=== PATIENT | male | born 1960 | race Caucasian/White ===

== ENCOUNTER 2023-04-26 15:38 | Emergency (ER) | payer OTHER, SELFPAY ==
[2023-04-26 15:45] VITALS: BP 141/94
[2023-04-26] MEDS: ATIVAN 1 MG PO (16:58)
--- NOTE | 2023-04-26 17:03 | ED.GENMED ---
History of Present Illness
General
Chief Complaint: Anal/Rectal Problem
Source: patient
Exam Limitations: none
Time Seen by Provider: 04/26/23 16:29
Nursing documentation reviewed up to this point in time: agreed with
Travel History
Have you had any contact with someone who has COVID-19?: No
Do you have any symptoms of coronavirus? Fever > 100 degrees, chills, cough, shortness of breath, sore throat, loss of taste or smell, muscle aches, or headache?: No
History of Present Illness
History of Present Illness:
62-year-old male with history of ulcerative colitis, IBS, constipation, anxiety presents stating he has had increasing pain and swelling in the rectal area over the past 3 days.
He also has pain in the left ear. He was swimming 3 weeks ago. His irrigated his ear and has been applying Debrox.
He denies fever or chills. Denies nausea or vomiting. Denies abdominal pain.
Past History
Past History
ED Past Medical History: Psychiatric (anxiety) and Other (Chronic ulcerative colitis, IBS)
ED Past Surgical History: Orthopedic and Tonsilectomy
Social History
Tobacco: Non-smoker
Alcohol: Occasional
Personal:
Living: with family
Employment: Employed
Review of Systems
Review of Systems
Allergies reviewed?: Yes
All Other Systems: ROS reviewed and negative except as documented in HPI and ROS
Constitutional: Denies fever or chills
EENT: Reports other (Left ear pain past week)
Respiratory: Denies trouble breathing
Cardiac: Denies chest pain
ABD/GI: Reports constipated; Denies abdominal pain, nausea, vomiting or diarrhea
: Denies dysuria or difficulty voiding
Musculoskeletal: Reports no symptoms
Skin: Reports other (Painful lump rectal area)
Phy Exam
Physical Exam
Physical Exam:
GENERAL: No acute distress. A&Ox3.
CONSTITUTIONAL: Afebrile.
EYES: Clear, conjunctivae normal
Neck: Supple, no lymphadenopathy
ENMT: moist mucus membranes, Pharynx nl, right TM normal, left ear canal with debris and reddened
RESPIRATORY: Regular respirations, nonlabored, lungs clear.
CARDIOVASCULAR: Regular rate and rhythm, no murmurs, no rubs.
GI: Soft, nontender, normal BS
Rectal: There is a dime sized left perirectal abscess. It is starting to drain. Digital exam of the rectal vault reveals no abscesses, no pain.
MUSCULOSKELETAL: Moves with ease. Well perfused.
SKIN: Warm, dry, pink
PSYCH: anxious mood and affect. Well kept, interactive and appropriate
NEUROLOGIC: Awake, alert and oriented. No focal neurological deficits
Course
Orders/Labs/Results
Orders:
Orders
04/26/23 16:53
Lorazepam [Ativan] 1 mg PO NOW STA
Vital Signs
Initial and Last Documented VS:
Initial Vital Signs
Temp Pulse Resp BP Pulse Ox
97.7 F 89 20 141/94 98
04/26/23 15:45 04/26/23 15:45 04/26/23 15:45 04/26/23 15:45 04/26/23 15:45
Last Documented Vital Signs
Temp Pulse Resp BP Pulse Ox
97.7 F 89 20 141/94 98
04/26/23 15:45 04/26/23 15:45 04/26/23 15:45 04/26/23 15:45 04/26/23 15:45
Procedures
Incision/Drainage/Joint Aspiration
Left Medial Buttock:
Anethesia: 1% Lidocaine with Epi
Preparation: cleaned with alcohol wipe
Type of procedure: incise and drain
Nature of site: abscess
Description of abscess: less than 3cm
How much fluid was obtained?: small amount
Fluid description: purulent
Treatment: packed with gauze and antibiotics started
MDM/Problems Addressed
Differential Diagnosis Includes:
Princess anal, princess rectal abscess, hemorrhoid
MDM/Problems Addressed:
62-year-old male with history of ulcerative colitis, IBS, constipation, anxiety presents stating he has had increasing pain and swelling in the rectal area over the past 3 days.
He also has pain in the left ear. He was swimming 3 weeks ago. His irrigated his ear and has been applying Debrox.
He denies fever or chills. Denies nausea or vomiting. Denies abdominal pain.
Afebrile, NAD
Expresses extreme anxiety however, he takes alprazolam as needed, I will give him an antianxiety medication now prior to procedure
04/26/2023 1706 PM
Patient tolerated I&D well
Due to multiple antibiotic allergies rx for Doxycycline mg twice daily sent to his pharmacy for perirectal abscess
Neomycin-polymixin B-hydrocortisone drops for L OM
*Critical Care Note
Total Time (30-74mins, 75-104mins- exclusive of procedures): Not Applicable
ED Attending Note
-
Portions of this chart may have been created with voice recognition software.� Occasional wrong word or��sound alike� substitutions may have occurred due to the inherent limitations of voice recognition software.
Discharge Plan
Departure
Patient Disposition: Home (Routine Discharge)
Date of Disposition: 04/26/23
Time of Disposition: 17:53
Patient with high blood pressure during this ER visit?: Yes
Condition: Good
Discharge Problem:
Perianal abscess, Left otitis externa
Instructions: Anal Abscess and Fistula, Adult (DC), How to Do a Sitz Bath, Outer Ear Infection ED
Prescriptions:
New
doxycycline hyclate 100 mg capsule
100 mg PO BID Qty: 20 0RF
qivllpjp-vjdwaragr-IJ 3.5-10,000-1 mg/mL-unit/mL-% drops,suspension
4 drp otic (ear) Q8H 10 Days Qty: 10 0RF
Referrals:
Cecil Saez, [Family Provider] - Follow up in 5-7 days
Activity Restrictions/Additional Instructions:
As we discussed, Tylenol as needed for pain.
I sent a prescription to your pharmacy for doxycycline . Also for antibiotic ear drops
If the gauze has not fallen out by Friday, remove it.
Keep the area clean and dry
Warm water baths or sitz bath's 2-3 times a day for the next 3 days
Interventions
Interventions:
*Risk Screen - Suicide Last Done: 04/26/23 18:09
*General Assessment Last Done: 04/26/23 18:09
*Neglect/Abuse Screening Last Done: 04/26/23 18:09
*ED COVID-19 Vaccine History Last Done: 04/26/23 18:09
*Nursing Disposition Last Done: 04/26/23 18:09
ED-Skin Assessment Last Done: 04/26/23 18:09
Discharge Date and Time
Discharge Date/Time: 04/26/23 18:10
== END 2023-04-26 18:10 | disposition home or self-care (01) ==
LOC: EMR 15:38
PROVIDERS: EMERGENCY PHYSICIAN Emergency Medicine; FAMILY PHYSICIAN Family Medicine
DX: K61.0 Anal abscess (principal); H60.92 Unspecified otitis externa, left ear; R03.0 Elevated blood-pressure reading, without diagnosis of hypertension
CPT/HCPCS: 46050; 99283

== ENCOUNTER → 2023-08-07 06:34 | Day surgery (SDC) | payer OTHER, SELFPAY | LOC: GI 06:34 | PROVIDERS: ATTENDING PHYSICIAN Internal Medicine Gastroenterology; FAMILY PHYSICIAN Family Medicine | DX: Z12.11 Encounter for screening for malignant neoplasm of colon (principal); D12.3 Benign neoplasm of transverse colon; D12.4 Benign neoplasm of descending colon; K57.30 Diverticulosis of large intestine without perforation or abscess without bleeding; K64.8 Other hemorrhoids; Z86.010 Personal history of colon polyps | CPT/HCPCS: 45385; 88305 ==

== ENCOUNTER 2023-10-24 22:18 | Inpatient (IN) | payer OTHER, SELFPAY ==
[2023-10-24 19:04] VITALS: BP 134/90
[2023-10-24 19:26] LABS: % Basophils 0.3 % (0-2); % Eosinophils 1.6 % (0-6); % Immature Granulocytes 0.2 % (0-0.5); % Lymphocytes 29.8 % (20.5-51.1); % Monocytes 10.1 % (1.7-9.3); Absolute Eosinophils 0.1 10^3/uL (0-0.7); Absolute Lymphocytes 2.6 10^3/uL (1.2-3.4); Absolute Monocytes 0.9 10^3/uL (0.1-0.6); Hematocrit 44.7 % (39.0-52.0); Hemoglobin 16.3 g/dL (13.0-18.0); Mean Corp Hgb Conc. 36.5 g/dL (33.0-37.0); Mean Corpuscular Hgb 32.7 pg (27.0-31.0); Mean Corpuscular Volume 89.8 fL (80.0-94.0); Mean Platelet Volume 9.3 fL (7.4-10.4); Nucleated Red Blood Cells % 0 % (-); Platelet Count 206 10^3/uL (130-400); Red Blood Cell Count 4.98 10^6/uL (4.70-6.10); Red Cell Dist. Width 13.2 % (11.5-14.5); White Blood Cell Count 8.7 10^3/uL (4.8-10.8)
[2023-10-24 19:42] LABS: ALT (SGPT) 27 U/L (0-50); AST (SGOT) 31 U/L (17-59); Albumin 4.5 g/dl (3.5-5.0); Alkaline Phosphatase 68 U/L (38-126); Blood Urea Nitrogen 20 mg/dl (9-20); Calcium 9.5 mg/dl (8.4-10.2); Carbon Dioxide 21 mmol/L (22-30); Chloride 105 mmol/L (98-107); Glucose 112 mg/dl (70-99); Lipase 191 U/L (23-300); Sodium 137 mmol/L (135-145); Total Bilirubin 0.6 mg/dl (0.2-1.3); Total Protein 6.9 g/dl (6.3-8.2); eGFR > 60.00
[2023-10-24 20:06] VITALS: BP 125/75
--- NOTE | 2023-10-24 20:12 | ED.GENMED ---
History of Present Illness
General
Chief Complaint: Abdominal Symptoms
Time Seen by Provider: 10/24/23 19:38
History of Present Illness
History of Present Illness:
Patient is a 63-year-old male with history of ulcerative colitis, IBS, hyperlipidemia presenting to the emergency department with abdominal pain. Patient states that 2 weeks ago he has been having biliary colic. He states that this started when he
was traveling after high-fat meal. Has significant bloating nausea vomiting and right upper quadrant abdominal pain that radiated to his shoulder. There was after a few hours and then has reoccurred every few days after high-fat meal. Given the
ongoing bloating gas nausea he did go to his primary care doctor who had an outpatient ultrasound that was inconclusive as the gallbladder was contracted. He did have an outpatient HIDA scan today that was abnormal. He states that he received a
call from his PCP stating to come to the emergency department as there was signs of infection. Patient denies any fevers or chills. No yellowing of skin. He has been having the recurrent biliary colic episode even after eating healthier.
Currently he is having some nausea and some right upper quadrant pain. He is having normal bowel movements. No prior abdominal surgeries.
Past History
Past History
ED Past Medical History: Psychiatric (anxiety) and Other (Chronic ulcerative colitis, IBS)
ED Past Surgical History: Orthopedic and Tonsilectomy
Social History
Tobacco: Non-smoker
Alcohol: Occasional
Personal:
Living: with family
Employment: Employed
Phy Exam
Physical Exam
Physical Exam:
GENERAL: in no acute distress
HEENT: normocephalic, extraocular movements intact, moist oral mucosa
NECK: normal inspection
RESPIRATORY: no respiratory distress, clear to auscultation bilaterally
CARDIOVASCULAR: regular rate and rhythm
ABDOMEN/: soft, non-distended, right upper quadrant tenderness to palpation, no rebound or guarding
EXTREMITIES: non-tender, no edema/swelling
NEUROLOGIC: awake and alert, moves all extremities
SKIN: warm
Course
Orders/Labs/Results
Orders:
Orders
10/24/23 19:20
Complete Blood Count/With Diff Urgent
Comprehensive Metabolic Panel Urgent
Lipase Urgent
10/24/23 21:22
Ondansetron Injectable [Zofran] 4 mg IV NOW STA
Abnormal Lab Results
10/24/23
19:20
MCH 32.7 H pg
(27.0-31.0)
Absolute Monos (auto) 0.9 H 10^3/uL
(0.1-0.6)
Monocytes % 10.1 H %
(1.7-9.3)
Carbon Dioxide 21 L mmol/L
(22-30)
Glucose 112 H mg/dl
(70-99)
10/24/23 19:20
10/24/23 19:20
Vital Signs
Initial and Last Documented VS:
Initial Vital Signs
Temp Pulse Resp BP Pulse Ox
98.1 F 98 19 134/90 95
10/24/23 19:04 10/24/23 19:04 10/24/23 19:04 10/24/23 19:04 10/24/23 19:04
Last Documented Vital Signs
Temp Pulse Resp BP Pulse Ox
98.1 F 98 19 125/75 97
10/24/23 19:04 10/24/23 19:04 10/24/23 19:04 10/24/23 20:06 10/24/23 20:15
MDM/Problems Addressed
Differential Diagnosis Includes:
Patient is a 63-year-old man with history of ulcerative colitis, IBS, hyperlipidemia presenting to the emergency department with abdominal pain and an abnormal HIDA scan completed today. Vitals here notable for being afebrile and exam does show
right upper quadrant tenderness. Concern for cholecystitis versus cholangitis versus choledocholithiasis. Considered obstruction though less likely as his abdomen is soft and he is having bowel movements. Could be viral in etiology though less
likely is as been going on for 2 weeks and is asymptomatic. Will obtain blood work. Will upload HIDA scan and discussed with surgery. I did offer pain control and antiemetics however patient declined at this time
*Critical Care Note
Total Time (30-74mins, 75-104mins- exclusive of procedures): Not Applicable
Update Note
Update Note:
On reevaluation patient is slightly nauseous. Will give him Zofran. LFTs are normal which is reassuring. We did upload the disc I did obtain a preliminary read which does show possible chronic cholecystitis. Discussed with surgery. Given that
he is symptomatic we will admit for surgical evaluation. No plans for surgery tonight. Discussed with hospitalist who will admit.
ED Attending Note
-
Portions of this chart may have been created with voice recognition software.� Occasional wrong word or��sound alike� substitutions may have occurred due to the inherent limitations of voice recognition software.
Discharge Plan
Departure
Patient Disposition: Admit
Date of Disposition: 10/24/23
Time of Disposition: 21:40
Presentation/result/management discussed w/ accepting MD/DO: Hospitalist
Discharge Problem:
Abdominal pain
Prescriptions:
No Action
multivitamin [Multi-Day] Tablet
1 tab PO DAILY
cyclobenzaprine [Flexeril] 10 mg Tablet
10 mg PO PRN PRN (Reason: pain)
cetirizine [Zyrtec] 10 mg Tablet
10 mg PO DAILY
sumatriptan succinate [Imitrex] 100 mg Tablet
100 mg PO PRN PRN (Reason: migraine)
ondansetron HCl [Zofran] 4 mg Tablet
4 mg PO Q8H PRN (Reason: nausea)
simvastatin [Zocor] 40 mg Tablet
40 mg PO QPM
lorazepam [Ativan] 0.5 mg Tablet
0.5 mg PO DAILY PRN (Reason: anxiety)
pantoprazole 40 mg Tablet,Delayed Release (Dr/Ec)
40 mg PO DAILY
methscopolamine [Pamine] 2.5 mg Tablet
2.5 mg PO ACHS
fiber Tablet
625 tab PO BID
hyoscyamine 0.15 mg Tablet
1.25 mg PO PRN PRN (Reason: as need)
Pepto-Bismol 262 mg Tablet
524 mg PO PRN PRN (Reason: indigestion)
simethicone 125 mg Tablet
125 mg PO PRN PRN (Reason: gas)
fluticasone propionate [Flonase Allergy Relief] 50 mcg/actuation [place],Suspension
1 spray INTRANASAL BID
omega 6-vhy-gcd-fish oil [Fish Oil] 1,000 mg (120 mg-180 mg) Capsule
1 cap PO HS
Probiotic 3 billion cell Capsule
3,000 mmu cells PO DAILY
Referrals:
Cecil Saez DO [Family Provider] -
Interventions
Interventions:
*Risk Screen - Suicide Last Done: 10/24/23 19:10
*General Assessment Last Done: 10/24/23 19:10
*Neglect/Abuse Screening Last Done: 10/24/23 19:10
Discharge Date and Time
Print Language: AFGHAN
[2023-10-24 20:21] VITALS: BMI 33.0
[2023-10-24 21:02] VITALS: BP 138/99
[2023-10-24] MEDS: ZOFRAN 4 MG IV (21:27)
--- NOTE | 2023-10-24 21:47 | EDRN ---
Patient ambulated to the restroom and back in bed, hospitalist at bedside working on admission.
--- NOTE | 2023-10-24 22:06 | HPS.HSE ---
Addendum entered and electronically signed by Wilmer Rachel MD 10/24/23 22:10:
NPO past midnight.
Original Note:
Family Physician
-
Family Physician: Cecil Saez
Chief Complaint
-
abdominal pain
History of Present Illness
63-year-old male past medical history of ulcerative colitis, IBS, hyperlipidemia, anxiety presenting to the emergency room with abdominal pain. 2 weeks ago he started having abdominal pain after eating anything. He has significant bloating, nausea
and vomiting and right upper quadrant abdominal pain radiated to his shoulder which has reoccurred every few days after any food. He went to see his primary care physician and had outpatient ultrasound inconclusive as the gallbladder was
contracted. He did have outpatient HIDA scan today that was abnormal suggesting infection. He was told to come to the emergency room due to signs of infection. He denies any fevers but has chills sometimes and he denies any jaundice.
He has been having abdominal pain for years but episodes like this have been infrequent prior to a few weeks ago. He last had a EGD 2 to 3 years ago which was unremarkable.
He has a history of ulcerative colitis/IBS and frequently can have irregular stools. He was on vacation a few weeks ago and had some constipation followed by bouts of diarrhea. Bowel movements are more regular at this time.
He smokes 2 packs of cigarettes a day. He denies alcohol. He smokes marijuana.
His father had GI problems although he cannot be more specific.
Medical History
Past Medical History
Past Medical History: Reports Other (ulcerative colitis, IBS, hyperlipidemia, anxiety)
Past Surgical History: Reports Other (nephrolithiasis)
Social History
Tobacco: Smoker
Alcohol: None
Drug: Marijuana
Family History
Family History: Not pertinent
Allergies / Home Medications
Allergies reflects when Allergies were last updated in [facility].
Home Medications with original date entered in [facility]
Allergy/Medication List:
Allergies
Allergy/AdvReac Type Severity Reaction Status Date / Time
Penicillins Allergy Intermediate Rash Verified 10/24/23 19:03
cephalexin [From Keflex] Allergy Unknown Verified 10/24/23 19:03
erythromycin base Allergy Unknown Verified 10/24/23 19:03
levofloxacin [From Levaquin] Allergy Nausea / Verified 10/24/23 19:03
Vomiting
sertraline [From Zoloft] Allergy Hives Verified 10/24/23 19:03
Home Medications
bismuth subsalicylate 262 mg tablet (Pepto-Bismol) 524 mg PO PRN PRN indigestion 10/24/23
cetirizine 10 mg tablet (Zyrtec) 10 mg PO DAILY 10/24/23
cyclobenzaprine 10 mg tablet 10 mg PO PRN PRN pain 10/24/23
fiber 625 tab PO BID 10/24/23
fluticasone propionate 50 mcg/actuation nasal spray,suspension (Flonase Allergy Relief) 1 spray intranasal BID 10/24/23
hyoscyamine 0.15 mg tablet 1.25 mg PO PRN PRN as need 10/24/23
lactobacillus combination no.4 3 billion cell capsule (Probiotic) 3,000 mmu cells PO DAILY 10/24/23
lorazepam 0.5 mg tablet (Ativan) 0.5 mg PO DAILY PRN anxiety 10/24/23
methscopolamine 2.5 mg tablet 2.5 mg PO ACHS 10/24/23
multivitamin 1 tab PO DAILY 10/24/23
omega 3-uew-vke-fish oil 1,000 mg (120 mg-180 mg) capsule (Fish Oil) 1 cap PO HS 10/24/23
ondansetron HCl 4 mg tablet 4 mg PO Q8H PRN nausea 10/24/23
pantoprazole 40 mg tablet,delayed release 40 mg PO DAILY 10/24/23
simethicone 125 mg tablet 125 mg PO PRN PRN gas 10/24/23
simvastatin 40 mg tablet (Zocor) 40 mg PO QPM 08/16/24
sumatriptan succinate 100 mg tablet (Imitrex) 100 mg PO PRN PRN migraine 10/24/23
Review of Systems
-
History Source: Patient
A 12 point ROS was completed and negative except as noted: Yes
Constitutional: Reports No Symptoms
EENT: Reports No Symptoms
Respiratory: Reports No Symptoms
Cardiac: Reports No Symptoms
Abdomen/GI: Reports See HPI
: Reports No Symptoms
Musculoskeletal: Reports No Symptoms
Skin: Reports No Symptoms
Neurological: Reports No Symptoms
Endocrine: Reports No Symptoms
Hematologic/Lymphatic: Reports No Symptoms
Psych: Reports No Symptoms
Physical Exam
Vital Signs
Vital Signs
Temp Pulse Resp BP Pulse Ox
98.1 F 98 19 125/75 97
10/24/23 19:04 10/24/23 19:04 10/24/23 19:04 10/24/23 20:06 10/24/23 20:15
Physical Exam
General: Well Developed, Well Nourished and No Apparent Distress
HEENT: NormoCephalic, Moist mucous membranes and Atraumatic
Respiratory: Clear
Cardiac: S1/S2 and Regular Rhythm; No Murmur or Rub
GI: Soft, Non Distended, Normal Bowel Sounds and Tender (RUQ ); No Organomegaly
Rectal: Deferred by Provider
Musculoskeletal: No Clubbing, No Cyanosis and No Edema
Skin: No Rash
Neuro: Nonfocal/grossly intact
Laboratory Results
-
10/24/23 19:20
10/24/23 19:20
Laboratory Results
Total Bilirubin 0.6 mg/dl (0.2-1.3) 10/24/23 19:20
AST 31 U/L (17-59) 10/24/23 19:20
ALT 27 U/L (0-50) 10/24/23 19:20
Alkaline Phosphatase 68 U/L (38-126) 10/24/23 19:20
Lipase 191 U/L (23-300) 10/24/23 19:20
Data Reviewed
-
Lab Data: Labs Reviewed by me
Old Records: Reviewed
Impression/Plan
-
IMPRESSION:
PLAN:
# Recurrent biliary colic/possible chronic cholecystitis
-Discs of abdominal ultrasound/HIDA scan being scanned into chart
-IV fluids
-Levaquin/Flagyl
-Clear liquids
-Zofran, Dilaudid as needed
-General Surgery consulted
History of ulcerative colitis
IBS
-Continue bismuth, simethicone, Protonix
Hyperlipidemia
-Continue statin
Anxiety
-Continue Ativan
Migraine history
History of nephrolithiasis
Active smoker
-Nicotine patch
Marijuana user
Full code
DVT prophylaxis�heparin
Clear liquid diet
--- NOTE | 2023-10-24 22:31 | EDRN ---
No delay sent to the Floor
[2023-10-24 23:00] VITALS: BP 138/88; BMI 32.6
--- NOTE | 2023-10-24 23:00 | PTCARENOTE ---
Pt admitted to 327 from ED. Ambulated independently to room. AAOx3, able to make needs known. Plan of care discussed. Call connolly within reach.
[2023-10-24 23:40] VITALS: BMI 32.6
[2023-10-24 23:41] VITALS: BP 138/88
[2023-10-24] MEDS: NSS 1000 IV (23:46)
[2023-10-24] MEDS: LEVAQUIN 150 IV (23:46)
[2023-10-24] MEDS: LIPITOR 20 MG PO (23:50)
[2023-10-24] MEDS: PROTONIX 40 MG PO (23:50)
[2023-10-24] MEDS: FIBERCON 625 MG PO (23:53)
[2023-10-24] MEDS: ATIVAN 0.5 MG PO (23:54)
[2023-10-25] MEDS: FLAGYL 500 MG 100 IV ×3 (02:09→16:39)
[2023-10-25 07:30] LABS: % Basophils 0.5 % (0-2); % Immature Granulocytes 0.3 % (0-0.5); % Lymphocytes 29.7 % (20.5-51.1); % Monocytes 11.3 % (1.7-9.3); % Neutrophils 56.2 % (42.2-75.2); Absolute Eosinophils 0.1 10^3/uL (0-0.7); Absolute Lymphocytes 1.9 10^3/uL (1.2-3.4); Absolute Monocytes 0.7 10^3/uL (0.1-0.6); Absolute Neutrophils 3.6 10^3/uL (1.4-6.5); Hematocrit 42.9 % (39.0-52.0); Hemoglobin 15.5 g/dL (13.0-18.0); Mean Corp Hgb Conc. 36.1 g/dL (33.0-37.0); Mean Corpuscular Hgb 32.8 pg (27.0-31.0); Mean Corpuscular Volume 90.7 fL (80.0-94.0); Mean Platelet Volume 9.5 fL (7.4-10.4); Nucleated Red Blood Cells % 0 % (-); Platelet Count 189 10^3/uL (130-400); Red Blood Cell Count 4.73 10^6/uL (4.70-6.10); Red Cell Dist. Width 13.1 % (11.5-14.5); White Blood Cell Count 6.4 10^3/uL (4.8-10.8)
[2023-10-25 07:55] LABS: ALT (SGPT) 27 U/L (0-50); AST (SGOT) 29 U/L (17-59); Albumin 3.9 g/dl (3.5-5.0); Alkaline Phosphatase 64 U/L (38-126); Blood Urea Nitrogen 16 mg/dl (9-20); Calcium 9.1 mg/dl (8.4-10.2); Carbon Dioxide 23 mmol/L (22-30); Chloride 106 mmol/L (98-107); Estimated Creatinine Clearance 87 ml/min; Glucose 89 mg/dl (70-99); Potassium 4.3 mmol/L (3.5-5.1); Sodium 137 mmol/L (135-145); Total Bilirubin 0.7 mg/dl (0.2-1.3); Total Protein 6.3 g/dl (6.3-8.2); eGFR > 60.00
[2023-10-25 08:00] VITALS: BP 127/75
[2023-10-25 08:19] VITALS: BP 127/75
[2023-10-25] MEDS: THERAGRAN 1 TABLET PO (09:02)
[2023-10-25] MEDS: NICODERM TRANSDERMAL 14 MG TRANSDERM (09:02)
[2023-10-25] MEDS: FIBERCON 625 MG PO ×2 (09:02→20:09)
[2023-10-25] MEDS: VISBIOME 1 CAP PO (09:02)
[2023-10-25] MEDS: ZYRTEC 10 MG PO (09:03)
[2023-10-25] MEDS: NICODERM TRANSDERMAL 21 MG TRANSDERM (10:43)
[2023-10-25] MEDS: PROTONIX 40 MG PO ×2 (10:43→20:09)
[2023-10-25] MEDS: ZOFRAN 4 MG IV ×2 (12:17→22:55)
[2023-10-25] MEDS: DILAUDID 0.5 MG IV ×3 (12:21→22:51)
--- NOTE | 2023-10-25 12:50 | W.PN.HOSP.TC ---
Today's Communication/Plan
-
continue IVF, IV Abx
US and compare to old US from [facility] [place]
GS consulted
Assessment / Plan
Assessment / Plan
Assessment:
Recurrent biliary colic/possible chronic cholecystitis
- Discs of abdominal ultrasound/HIDA scan being scanned into chart
- repeat US pending
- IV fluids
- Levaquin/Flagyl, day 1
- diet per GS, currently NPO
- pain control, anti-emetics
- General Surgery consulted
History of ulcerative colitis
IBS
- continue bismuth, simethicone, Protonix
Hyperlipidemia
- continue statin
Anxiety
- continue Ativan
Migraine history
History of nephrolithiasis
Active smoker
- nicotine patch
Marijuana user
DVT ppx: SC heparin
Code: Full
Anticipated Discharge: > 48 hours
Subjective/Interval History
-
Date of Service: October 25, 2023
reports RUQ
denies any other complaints currently
Objective Data
-
Labs:
Laboratory Results
10/25/23
06:57
WBC 6.4
Hgb 15.5
Hct 42.9
Plt Count 189
Sodium 137
Potassium 4.3
Chloride 106
Carbon Dioxide 23
BUN 16
Creatinine 0.9
Glucose 89
Calcium 9.1
Total Bilirubin 0.7
AST 29
ALT 27
Alkaline Phosphatase 64
Vital Signs:
Vital Signs
Temp Pulse Resp BP Pulse Ox
97.7 F 63 18 127/75 93
10/25/23 08:00 10/25/23 08:00 10/25/23 08:00 10/25/23 08:00 10/25/23 08:00
I&O
10/24/23 10/25/23 10/26/23
06:59 06:59 06:59
Intake Total 690 / 690
Balance 690 / 690
Physical Exam
-
General: No Apparent Distress
HEENT: Normocephalic and Atraumatic
Respiratory: Negative Wheezes
Cardiac: Regular Rhythm and S1/S2
GI: Other (RUQ tenderness)
Genito-urinary: No Costovertebral Tender
Musculoskeletal: No Edema
Neuro: AO x 3
Psych: Calm
Data Reviewed
-
Total Time Spent with Patient (in minutes): 42
Labs: Labs Reviewed by me
[2023-10-25] MEDS: NON-FORMULARY ITEM PO ×4 (14:39→14:40)
--- NOTE | 2023-10-25 14:41 | PTCARENOTE ---
PT very anxious this am.He stated he wants to know where he can go smoke and insisted there was a place all the employees smoke. I clarified this is a non smoking campus and all employees are non smoking. I spent 20 minutes on smoking cessation
education. PT ordered 14 mg and I did notify MD and it was increased to 21 mg and placed on pt. PT co burning from his chronic heart burn, Protonix ordered changed to BID as home schedule. PT very upset about why he is not going to surgery. he
stated that he was told he was being admitted for surgery this am. I explained that I did not have any orders for surgery but that a surgeon was ordered to come see him this am. Dr Sutton did speak with him about this. PT is currently resting in
room
[2023-10-25 15:00] VITALS: BP 122/88
[2023-10-25] MEDS: NSS 1000 IV (16:38)
[2023-10-25] MEDS: NON-FORMULARY ITEM 2.5 MG PO ×2 (16:40→22:00)
[2023-10-25] MEDS: LIPITOR 20 MG PO (16:40)
--- NOTE | 2023-10-25 17:10 | CON.GS ---
Medical History
-
Chief Complaint: Abdominal pain, belching
History of Present Illness:
This is a 63 yo male with a reported history of UC (no ulcerations on last colonoscopy in July), IBS, anxiety who notes an episode of severe upper epigastric abdominal pain about 2 1/2 weeks ago while on vacation. The episode lasted about 6 hours and
then resolved; however, since that time he has noted bloating, belching and intermittent nausea. He has had intermittent diarrhea and constipation in keeping with his IBS symptoms. He does report some recurrent discomfort to the epigastric area
every few days as well. He follows routinely with Dr. Montana and did have outpatient imaging at [facility] with HIDA and US. He notes the outpatient US showed a contracted gallbladder and has brought the CD with him.
Past Medical History
Past Medical History: Diverticulitis and Other (UC, IBS, Anxiety)
Past Surgical History: Orthopedic (right knee surgery), Tonsilectomy and Urological (ureteroscopy 2019)
Social History
Tobacco: Smoker (2ppd)
Alcohol: None
Drug: Marijuana
Family History
Family History: Reviewed & Not Pertinent
Allergies / Home Medications
Allergy/AdvReac Type Severity Reaction Status Date / Time
Penicillins Allergy Intermediate Rash Verified 10/24/23 19:03
cephalexin [From Keflex] Allergy Unknown Verified 10/24/23 19:03
erythromycin base Allergy Unknown Verified 10/24/23 19:03
levofloxacin [From Levaquin] Allergy Nausea / Verified 10/24/23 19:03
Vomiting
sertraline [From Zoloft] Allergy Hives Verified 10/24/23 19:03
�Medication �Instructions �Recorded �Confirmed �Type
bismuth subsalicylate 262 mg 524 mg PO PRN PRN indigestion 10/24/23 10/24/23 History
tablet (Pepto-Bismol)
cetirizine 10 mg tablet (Zyrtec) 10 mg PO DAILY 10/24/23 10/24/23 History
cyclobenzaprine 10 mg tablet 10 mg PO PRN PRN pain 10/24/23 10/24/23 History
fiber 625 tab PO BID 10/24/23 10/24/23 History
fluticasone propionate 50 1 spray intranasal BID 10/24/23 10/24/23 History
mcg/actuation nasal
spray,suspension (Flonase Allergy
Relief)
hyoscyamine 0.15 mg tablet 1.25 mg PO PRN PRN as need 10/24/23 10/24/23 History
lactobacillus combination no.4 3 3,000 mmu cells PO DAILY 10/24/23 10/24/23 History
billion cell capsule (Probiotic)
lorazepam 0.5 mg tablet (Ativan) 0.5 mg PO DAILY PRN anxiety 10/24/23 10/24/23 History
methscopolamine 2.5 mg tablet 2.5 mg PO ACHS 10/24/23 10/24/23 History
multivitamin 1 tab PO DAILY 10/24/23 10/24/23 History
omega 8-ino-ovc-fish oil 1,000 mg 1 cap PO HS 10/24/23 10/24/23 History
(120 mg-180 mg) capsule (Fish Oil)
ondansetron HCl 4 mg tablet 4 mg PO Q8H PRN nausea 10/24/23 10/24/23 History
pantoprazole 40 mg tablet,delayed 40 mg PO BID 10/24/23 10/25/23 History
release
simethicone 125 mg tablet 125 mg PO PRN PRN gas 10/24/23 10/24/23 History
simvastatin 40 mg tablet (Zocor) 40 mg PO QPM 10/24/23 10/24/23 History
sumatriptan succinate 100 mg 100 mg PO PRN PRN migraine 10/24/23 10/24/23 History
tablet (Imitrex)
Review of Systems
-
History Source: Patient
All other systems: Negative unless noted
A 10 point review of systems was completed, and was negative except as per HPI.
Physical Exam
Vital Signs
Temp Pulse Resp BP Pulse Ox
98 F 71 18 122/88 98
10/25/23 15:00 10/25/23 15:00 10/25/23 15:00 10/25/23 15:00 10/25/23 15:00
10/24/23 10/25/23 10/26/23
06:59 06:59 06:59
Actual Weight 88.813 kg
Body Mass Index (BMI) 32.6
Lab Results
10/25/23 06:57
10/25/23 06:57
WBC 6.4 10^3/uL (4.8-10.8) 10/25/23 06:57
Hgb 15.5 g/dL (13.0-18.0) 10/25/23 06:57
Hct 42.9 % (39.0-52.0) 10/25/23 06:57
Plt Count 189 10^3/uL (130-400) 10/25/23 06:57
Abs Immat Gran (auto) 0.0 10^3/uL (0-0.05) 10/25/23 06:57
Neutrophils % 56.2 % (42.2-75.2) 10/25/23 06:57
Physical Exam
General: Well Developed and Well Nourished
HEENT: Moist Mucous Membranes
Respiratory: Non Labored Respirations
GI: Soft, Non Tender and Non Distended
Skin: Warm and Dry
Neuro: Awake, Alert and AO x 3
Psych: Calm
Data Reviewed
-
Labs: Labs Reviewed by me, Discussed with Physician and Discussed with Patient
Assessment / Plan
-
63 yo male with recurrent epigastric discomfort, burping and bloating with prior HIDA/US at [facility]. Reports 'contracted gallbladder'. CD obtained from patient and taken to radiology earlier today to be scanned into the system. AFVSS. Labs normal. No
pain present currently on exam. Unclear if this is biliary colic vs gastritis.
--Will obtain US here for comparison to OP image
--Consider GI consult given multiple GI symptoms
--Clear liquid diet today
--C/W PPI
--Medical management as per primary team
[2023-10-25] MEDS: MAALOX 30 ML PO ×2 (18:03→23:03)
[2023-10-25 22:40] VITALS: BP 131/88
[2023-10-25 22:47] LABS: Glucose - Point of Care 84 mg/dl (70-99)
[2023-10-25] MEDS: LEVAQUIN 150 IV (23:02)
[2023-10-25 23:25] VITALS: BP 125/74
[2023-10-26] MEDS: FLAGYL 500 MG 100 IV ×4 (01:03→23:02)
[2023-10-26] MEDS: MAALOX 30 ML PO ×2 (05:32→15:09)
[2023-10-26 07:45] VITALS: BP 111/60
[2023-10-26 07:52] LABS: Hemoglobin 15.1 g/dL (13.0-18.0); Mean Corpuscular Hgb 32.4 pg (27.0-31.0); Mean Corpuscular Volume 90.1 fL (80.0-94.0); Mean Platelet Volume 10.2 fL (7.4-10.4); Platelet Count 154 10^3/uL (130-400); Red Blood Cell Count 4.66 10^6/uL (4.70-6.10); Red Cell Dist. Width 13.1 % (11.5-14.5); White Blood Cell Count 6.7 10^3/uL (4.8-10.8)
[2023-10-26 08:29] LABS: ALT (SGPT) 25 U/L (0-50); AST (SGOT) 33 U/L (17-59); Albumin 3.6 g/dl (3.5-5.0); Alkaline Phosphatase 54 U/L (38-126); Blood Urea Nitrogen 14 mg/dl (9-20); Calcium 8.7 mg/dl (8.4-10.2); Carbon Dioxide 21 mmol/L (22-30); Chloride 106 mmol/L (98-107); Estimated Creatinine Clearance 87 ml/min; Glucose 81 mg/dl (70-99); Potassium 4.3 mmol/L (3.5-5.1); Sodium 136 mmol/L (135-145); Total Bilirubin 0.9 mg/dl (0.2-1.3); Total Protein 5.9 g/dl (6.3-8.2); eGFR > 60.00
[2023-10-26] MEDS: NON-FORMULARY ITEM 2.5 MG PO ×4 (09:05→22:42)
[2023-10-26] MEDS: PROTONIX 40 MG PO ×2 (09:06→21:13)
[2023-10-26] MEDS: ZYRTEC 10 MG PO (09:06)
[2023-10-26] MEDS: VISBIOME 1 CAP PO (09:06)
[2023-10-26] MEDS: NICODERM TRANSDERMAL 21 MG TRANSDERM (09:06)
[2023-10-26] MEDS: FIBERCON 625 MG PO ×2 (09:06→22:42)
[2023-10-26] MEDS: THERAGRAN 1 TABLET PO (09:06)
[2023-10-26] MEDS: NSS 1000 IV (09:07)
--- NOTE | 2023-10-26 11:12 | CM ---
Met with pt, his and daughter at bedside
Pt reports He lives with his and daughter in a 2 story home, 1 step to enter, 12 steps to 2nd fl
Independent, working FT, drives
DME - cane
SNF - no past hx; Outpatient PT at [facility]
HH - denies past hx
Has ride home at d/c
PCP - Dr Cecil Saez
Pharm - [facility]
CM consult: Advance Directive
Given Advance Directive packet to review
CM will follow for d/c needs
Plan - anticipate home no needs
--- NOTE | 2023-10-26 11:15 | W.PN.HOSP.TC ---
Today's Communication/Plan
-
await US Abd and next steps from GI/surgery
continue IVF, IV abx, clears but keep NPO p MN
Assessment / Plan
Assessment / Plan
Assessment:
Recurrent biliary colic/possible chronic cholecystitis
- Discs of abdominal ultrasound/HIDA scan being scanned into chart
- repeat US pending to compare to prior scans
- IV fluids continue
- Levaquin/Flagyl, day 2
- clears; NPO p MN (tentative lap hattie vs other testing such as EGD pending US result and GI/surgery discussion)
- pain control, anti-emetics
History of ulcerative colitis
IBS
- continue bismuth, simethicone, Protonix
Hyperlipidemia
- continue statin
Anxiety
- continue Ativan
Migraine history
History of nephrolithiasis
Active smoker
- nicotine patch
Marijuana user
DVT ppx: SC heparin
Code: Full
Anticipated Discharge: > 48 hours
Subjective/Interval History
-
Date of Service: October 26, 2023
reports epigastric discomfort, belching, sweats last evening
for US today
Objective Data
-
Labs:
Laboratory Results
10/26/23
06:32
WBC 6.7
Hgb 15.1
Hct 42.0
Plt Count 154
Sodium 136
Potassium 4.3
Chloride 106
Carbon Dioxide 21 L
BUN 14
Creatinine 0.9
Glucose 81
Calcium 8.7
Total Bilirubin 0.9
AST 33
ALT 25
Alkaline Phosphatase 54
Vital Signs:
Vital Signs
Temp Pulse Resp BP Pulse Ox
97.5 F 68 17 111/60 95
10/26/23 07:45 10/26/23 07:45 10/26/23 07:45 10/26/23 07:45 10/26/23 07:45
I&O
10/25/23 10/26/23 10/27/23
06:59 06:59 06:59
Intake Total 690 / 690 2114
Balance 690 / 690 2114
Physical Exam
-
General: No Apparent Distress
HEENT: Normocephalic and Atraumatic
Respiratory: Negative Wheezes
Cardiac: Regular Rhythm and S1/S2
GI: Nondistended and Tender
Genito-urinary: No Costovertebral Tender
Neuro: AO x 3
Psych: Calm
Data Reviewed
-
Total Time Spent with Patient (in minutes): 41
Labs: Labs Reviewed by me
--- NOTE | 2023-10-26 13:19 | CON.GI ---
Addendum entered and electronically signed by Reyes Viera MD 10/27/23 08:10:
repeat US abd 10/25
IMPRESSION:
There is a contracted gallbladder with wall thickening and positive sonographic Burns sign. No pericholecystic fluid present. Findings are similar to the outside ultrasound 10/16/2023 and likely represent cholecystitis, possibly chronic.
The common bile duct is within normal limits measuring 5 mm.
awaiting OR today for cholecystectomy
will s/o. will recommend follow up with on discharge
Original Note:
Consultation
-
Date/Time Consultation Requested: 10/25/2023
Date/Time Consultation Performed: 10/26/2023
Requesting Provider: Hospitalist
Performing Provider: Tapan PELAYO
Reason for Consultation: abdominal pain
Medical History
Chief Complaint / HPI
Chief Complaint: abdominal pain
History of Present Illness:
63-year-old male with remote history of ulcerative colitis (not on any maintenance medication. Recent colonoscopy 07/[address] Lomeli showing no colitis ), IBS, anxiety is admitted with progressive worsening CT ab abdominal pain for the last 2 to
3 weeks. Pain started while he was on vacation-when he was trying to eat pasta with shrimp . Associated with belching and intermittent nausea. Since his symptoms got progressively worsened he was seen by PCP and underwent ultrasound abdomen/HIDA
scan. He was advised to go to the hospital by PCP after HIDA scan for surgical evaluation. Although patient has IBS symptoms for many years he claims this symptom is different and worsening over the last few weeks
His bowel movements are irregular-constipation alternates with diarrhea.
Last EGD as per patient 1 to 2 years back at outside facility and was reassured at that time.
Past Medical History
Past Medical History: Other (IBS, anxiety)
Past Surgical History: Other (Tonsillectomy, right knee surgery)
Social History
Tobacco: Smoker
Alcohol: None
Drug: Marijuana
Allergies / Home Medications
Allergy/AdvReac Type Severity Reaction Status Date / Time
Penicillins Allergy Intermediate Rash Verified 10/24/23 19:03
cephalexin [From Keflex] Allergy Unknown Verified 10/24/23 19:03
erythromycin base Allergy Unknown Verified 10/24/23 19:03
levofloxacin [From Levaquin] Allergy Nausea / Verified 10/24/23 19:03
Vomiting
sertraline [From Zoloft] Allergy Hives Verified 10/24/23 19:03
�Medication �Instructions �Recorded
bismuth subsalicylate 262 mg 524 mg PO PRN PRN indigestion 10/24/23
tablet (Pepto-Bismol)
cetirizine 10 mg tablet (Zyrtec) 10 mg PO DAILY 10/24/23
cyclobenzaprine 10 mg tablet 10 mg PO PRN PRN pain 10/24/23
fiber 625 tab PO BID 10/24/23
fluticasone propionate 50 1 spray intranasal BID 10/24/23
mcg/actuation nasal
spray,suspension (Flonase Allergy
Relief)
hyoscyamine 0.15 mg tablet 1.25 mg PO PRN PRN as need 10/24/23
lactobacillus combination no.4 3 3,000 mmu cells PO DAILY 10/24/23
billion cell capsule (Probiotic)
lorazepam 0.5 mg tablet (Ativan) 0.5 mg PO DAILY PRN anxiety 10/24/23
methscopolamine 2.5 mg tablet 2.5 mg PO ACHS 10/24/23
multivitamin 1 tab PO DAILY 10/24/23
omega 9-zel-fqv-fish oil 1,000 mg 1 cap PO HS 10/24/23
(120 mg-180 mg) capsule (Fish Oil)
ondansetron HCl 4 mg tablet 4 mg PO Q8H PRN nausea 10/24/23
pantoprazole 40 mg tablet,delayed 40 mg PO BID 10/24/23
release
simethicone 125 mg tablet 125 mg PO PRN PRN gas 10/24/23
simvastatin 40 mg tablet (Zocor) 40 mg PO QPM 10/24/23
sumatriptan succinate 100 mg 100 mg PO PRN PRN migraine 10/24/23
tablet (Imitrex)
Review of Systems
-
All other systems: A 12 pt ROS was Negative except as stated above in HPI
Vital Signs
Temp Pulse Resp BP Pulse Ox
97.5 F 68 17 111/60 95
10/26/23 07:45 10/26/23 07:45 10/26/23 07:45 10/26/23 07:45 10/26/23 07:45
Physical Exam
Exam
General: No Apparent Distress
Respiratory: Clear
Cardiac: S1/S2
GI: Soft, Non Distended, Normal Bowel Sounds and Tender (Epigastric/right upper quadrant tenderness on deep palpation)
Results
WBC 6.7 10^3/uL (4.8-10.8) 10/26/23 06:32
Hgb 15.1 g/dL (13.0-18.0) 10/26/23 06:32
Hct 42.0 % (39.0-52.0) 10/26/23 06:32
MCV 90.1 fL (80.0-94.0) 10/26/23 06:32
Plt Count 154 10^3/uL (130-400) 10/26/23 06:32
Absolute Neuts (auto) 3.6 10^3/uL (1.4-6.5) 10/25/23 06:57
Sodium 136 mmol/L (135-145) 10/26/23 06:32
Potassium 4.3 mmol/L (3.5-5.1) 10/26/23 06:32
Chloride 106 mmol/L (98-107) 10/26/23 06:32
Carbon Dioxide 21 mmol/L (22-30) L 10/26/23 06:32
BUN 14 mg/dl (9-20) 10/26/23 06:32
Creatinine 0.9 mg/dL (0.7-1.3) 10/26/23 06:32
Calcium 8.7 mg/dl (8.4-10.2) 10/26/23 06:32
Total Bilirubin 0.9 mg/dl (0.2-1.3) 10/26/23 06:32
AST 33 U/L (17-59) 10/26/23 06:32
ALT 25 U/L (0-50) 10/26/23 06:32
Alkaline Phosphatase 54 U/L (38-126) 10/26/23 06:32
Lipase 191 U/L (23-300) 10/24/23 19:20
Diagnostic Image Results:
Prior GI Procedures:
EGD: 1 to 2 years back at outside facility. No records available
Colonoscopy: 07/2023 Dr. Montana
Impression: - One 5 mm polyp in the transverse colon, removed with
a cold snare. Resected and retrieved. Path tubular adenoma
- One 5 mm polyp in the descending colon, removed with
a cold snare. Resected and retrieved. Path tubular adenoma
- Diverticulosis in the sigmoid colon and in the
descending colon.
- Internal hemorrhoids.
- The examination was otherwise normal.
Assessment / Plan
-
63-year-old male with history of IBS, remote history of UC (not on any maintenance medication, recent colonoscopy 07/2023 not showing any active colitis ) admitted with worsening upper/right upper quadrant abdominal pain with nausea/belching for the
last 2 to 3 weeks. triggered by meals.
--Upper abdominal pain -patient was referred to ED by PCP after ultrasound abdomen/HIDA ( reports not available ) for further surgical evaluation for cholecystectomy. WBC normal. Liver test normal. likely chronic cholecystitis vs biliary
dyskinesia
-- IBS- M
-- colon polyp
plan
Surgical consultation reviewed. Awaiting repeat ultrasound abdomen
continue PPI
Continue bowel regimen
If repeat ultrasound abdomen not suggestive of cholecystitis will consider EGD to r/o UGI pathology
Total Time Spent with Patient (in minutes): 55
-
-
Thank you for consultation and allowing me to participate in the patient's care. Please call the computer education teacher GI physician during the after hours with any questions or concerns.
[2023-10-26 15:00] VITALS: BP 129/84
[2023-10-26] MEDS: DILAUDID 0.5 MG IV (15:08)
--- NOTE | 2023-10-26 16:54 | W.PN.GS2 ---
Today's Communication / Plan
-
NPO after MN for tentative OR
Assessment / Plan
-
63 yo male with intermittent upper abdominal pain with nausea and belching. Following with GI as an outpatient with outpatient imaging obtained on CD. US repeated here for comparison with [facility] image with +Burns's on today's study and findings
consistent with chronic cholecystitis. Personally reviewed HIDA from [facility]: no visualization of the gallbladder after 4 hours (+ HIDA).
AFVSS
No leukocytosis. LFT's normal
Pain is persistent
--Tentative plan for OR tomorrow for lap hattie
--NPO after MN, ok for clears tonight
--C/W empiric abx
--SCD's for VTE ppx
Subjective Data
-
Date of Service: October 26, 2023
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 Denies n/v. But still with intermittent belching and burning epigastric sensation. Upper abdominal pain over the the RUQ present and he took dilaudid prior to my exam due to the severity.
Objective Data
-
Intake and Output
10/25/23 10/26/23 10/27/23
06:59 06:59 06:59
Intake Total 690 / 690 5 / 2115
Balance 690 / 690 5 / 2115
Intake:
Oral fluids 240 / 240 1200 / 1200
IV fluids (Total) 200 / 200 665 / 665
IV piggybacks 250 / 250 250 / 250
Other:
Number of approximated MODERATE 1 3
amounts of urine
Number of approximated LARGE 2
amounts of urine
Vital Signs
Temp Pulse Resp BP Pulse Ox
97.8 F 76 19 129/84 97
10/26/23 15:00 10/26/23 15:00 10/26/23 15:00 10/26/23 15:00 10/26/23 15:00
Lab Results
10/26/23 06:32
10/26/23 06:32
Calcium 8.7 mg/dl (8.4-10.2) 10/26/23 06:32
Total Bilirubin 0.9 mg/dl (0.2-1.3) 10/26/23 06:32
AST 33 U/L (17-59) 10/26/23 06:32
ALT 25 U/L (0-50) 10/26/23 06:32
Alkaline Phosphatase 54 U/L (38-126) 10/26/23 06:32
Total Protein 5.9 g/dl (6.3-8.2) L 10/26/23 06:32
Albumin 3.6 g/dl (3.5-5.0) 10/26/23 06:32
Physical Exam
-
NAD
ABD soft, mild ruq tenderness, nd
[2023-10-26] MEDS: LIPITOR 20 MG PO (16:57)
[2023-10-26] MEDS: ZOFRAN 4 MG IV (17:02)
[2023-10-26] MEDS: OMNIPAQUE 50 ML PO (19:59)
[2023-10-26] MEDS: COMPAZINE 5 MG IV (21:18)
[2023-10-26] MEDS: FLUSH (NSS) 2 FLUSH IV (21:20)
[2023-10-26 22:56] VITALS: BP 129/88
[2023-10-27] VITALS (9 sets, daily range): BP systolic 110–142; BP diastolic 79–91; BMI 32.1
[2023-10-27] MEDS: LEVAQUIN 150 IV (00:21)
[2023-10-27] MEDS: NSS 1000 IV ×2 (05:54→08:39)
[2023-10-27 06:18] LABS: Hemoglobin 15.4 g/dL (13.0-18.0); Mean Corp Hgb Conc. 35.8 g/dL (33.0-37.0); Mean Corpuscular Volume 92.3 fL (80.0-94.0); Mean Platelet Volume 9.3 fL (7.4-10.4); Platelet Count 161 10^3/uL (130-400); Red Blood Cell Count 4.66 10^6/uL (4.70-6.10)
[2023-10-27 06:31] LABS: ALT (SGPT) 46 U/L (0-50); AST (SGOT) 51 U/L (17-59); Albumin 3.7 g/dl (3.5-5.0); Alkaline Phosphatase 65 U/L (38-126); Blood Urea Nitrogen 10 mg/dl (9-20); Carbon Dioxide 22 mmol/L (22-30); Chloride 109 mmol/L (98-107); Estimated Creatinine Clearance 87 ml/min; Glucose 96 mg/dl (70-99); Potassium 4.1 mmol/L (3.5-5.1); Sodium 137 mmol/L (135-145); Total Bilirubin 0.9 mg/dl (0.2-1.3); Total Protein 6.1 g/dl (6.3-8.2); eGFR > 60.00
[2023-10-27] MEDS: NON-FORMULARY ITEM 2.5 MG PO ×2 (08:37→21:26)
[2023-10-27] MEDS: FLAGYL 500 MG 100 IV (08:37)
[2023-10-27] MEDS: PROTONIX 40 MG PO ×2 (08:38→21:26)
[2023-10-27] MEDS: THERAGRAN 1 TABLET PO (08:38)
[2023-10-27] MEDS: FIBERCON 625 MG PO ×2 (08:38→21:26)
[2023-10-27] MEDS: ZYRTEC 10 MG PO (08:38)
[2023-10-27] MEDS: NICODERM TRANSDERMAL 21 MG TRANSDERM (08:38)
[2023-10-27] MEDS: VISBIOME 1 CAP PO (08:59)
--- NOTE | 2023-10-27 11:08 | CHAP ---
Emotional and spiritual support provided for Mr. Saldana and his at bedside. Prayers shared, prayer blanket given. Will follow
--- NOTE | 2023-10-27 11:20 | W.PN.HOSP.TC ---
Today's Communication/Plan
-
for lap hattie
Assessment / Plan
Assessment / Plan
Assessment:
Recurrent biliary colic/possible chronic cholecystitis
- Discs of abdominal ultrasound/HIDA scan being scanned into chart, reviewed, HIDA scan consistent with acute Cholecystitis
- repeat US: There is a contracted gallbladder with wall thickening and positive sonographic Burns sign. No pericholecystic fluid present. Findings are similar to the outside ultrasound 10/16/2023 and likely represent cholecystitis, possibly chronic.
The common bile duct is within normal limits measuring 5 mm
- IV fluids continue
- Levaquin/Flagyl, day 3, to continue
- clears; remains NPO p MN (with lap hattie scheduled)
- pain control, anti-emetics
History of ulcerative colitis
IBS
- continue bismuth, simethicone, Protonix
Hyperlipidemia
- continue statin
Anxiety
- continue Ativan
Migraine history
History of nephrolithiasis
Active smoker
- nicotine patch
Marijuana user
DVT ppx: SC heparin
Code: Full
Anticipated Discharge: 24 - 48 hours
Subjective/Interval History
-
Date of Service: October 27, 2023
Awaiting planned cholecystectomy
Objective Data
-
Labs:
Laboratory Results
10/27/23
06:01
WBC 6.0
Hgb 15.4
Hct 43.0
Plt Count 161
Sodium 137
Potassium 4.1
Chloride 109 H
Carbon Dioxide 22
BUN 10
Creatinine 0.9
Glucose 96
Calcium 9.0
Total Bilirubin 0.9
AST 51
ALT 46
Alkaline Phosphatase 65
Vital Signs:
Vital Signs
Temp Pulse Resp BP Pulse Ox
98.2 F 68 17 142/84 95
10/27/23 07:48 10/27/23 07:48 10/27/23 07:48 10/27/23 07:48 10/27/23 07:48
I&O
10/26/23 10/27/23 10/28/23
06:59 06:59 06:59
Intake Total 2114
Balance 2114
Review of Systems
-
History Source: Patient and Family ( in room)
Constitutional: Denies Fever
EENT: Reports No Symptoms Reported
Respiratory: Reports No Symptoms
Cardiac: Reports No Symptoms
Abdomen/GI: Reports Abdominal Pain
Musculoskeletal: Reports No Symptoms
Neuro: Reports No Symptoms
Physical Exam
-
General: No Apparent Distress
HEENT: Normocephalic and Atraumatic
Respiratory: Negative Wheezes
Cardiac: Regular Rhythm and S1/S2
GI: Nondistended, Normal Bowel Sounds and Tender
Genito-urinary: No Costovertebral Tender
Musculoskeletal: No Clubbing, No Cyanosis and No Edema
Neuro: Awake, Alert, Oriented and AO x 3
Psych: Calm
--- NOTE | 2023-10-27 11:26 | W.PN.GS2 ---
Today's Communication / Plan
-
OR today vs tomorrow pending OR availability
Assessment / Plan
-
63 yo male with intermittent upper abdominal pain with nausea and belching. Following with GI as an outpatient with outpatient imaging obtained on CD. US repeated here for comparison with [facility] image with +[facility]'s study and findings consistent
with chronic cholecystitis. HIDA from [facility]: no visualization of the gallbladder after [address] with contracted gallbladder, stone near neck.
AFVSS
No leukocytosis. LFT's normal
Pain is persistent
--Tentative plan for OR for lap hattie today vs tomorrow pending OR availability
--NPO for OR
--C/W empiric abx
--GI following with us
--SCD's for VTE ppx
Subjective Data
-
Date of Service: October 27, 2023
Patient seen and examined at bedside with Dr. Max. Denies n/v. Pain to the RUQ is intermittent.
Objective Data
-
Intake and Output
10/26/23 10/27/23 10/28/23
06:59 06:59 06:59
Intake Total 2114
Balance 2114
Intake:
Oral fluids 1200 / 1200 960 / 960
IV fluids (Total) 665 / 665 740 / 740
IV piggybacks 250 / 250 350 / 350
Other:
Number of approximated MODERATE 3 4
amounts of urine
Vital Signs
Temp Pulse Resp BP Pulse Ox
98.2 F 68 17 142/84 95
10/27/23 07:48 10/27/23 07:48 10/27/23 07:48 10/27/23 07:48 10/27/23 07:48
Lab Results
10/27/23 06:01
10/27/23 06:
Calcium 9.0 mg/dl (8.4-10.2) 10/27/23 06:
Total Bilirubin 0.9 mg/dl (0.2-1.3) 10/27/23 06:01
AST 51 U/L (17-59) 10/27/23 06:01
ALT 46 U/L (0-50) 10/27/23 06:
Alkaline Phosphatase 65 U/L (38-126) 10/27/23 06:01
Total Protein 6.1 g/dl (6.3-8.2) L 10/27/23 06:01
Albumin 3.7 g/dl (3.5-5.0) 10/27/23 06:01
Physical Exam
-
NAD
ABD soft, mild ruq tenderness, nd
[2023-10-27] MEDS: NON-FORMULARY ITEM 1 MG PO (12:44)
--- NOTE | 2023-10-27 14:05 | W.SUR.PREOP ---
Pre-Operative Surgical Note
-
I have examined this patient prior to the performance of the scheduled procedure.
The patient's condition is unchanged from the time of the current History and
Physical and the patient is able to undergo the scheduled procedure.
[2023-10-27] MEDS: NON-FORMULARY ITEM PO (16:28)
[2023-10-27] MEDS: FLAGYL 500 MG IV (16:30)
[2023-10-27] MEDS: LIPITOR PO (17:39)
--- NOTE | 2023-10-27 17:42 | W.IMMPOSTOP ---
Surgical Immed Post Op Note
-
Primary Surgeon: James Max MD
Assisting Surgeon: None
Pre-op Diagnosis: Chronic cholecystitis, umbilical hernia
Post-op Diagnosis: Same
Procedure Performed:
1. Laparoscopic cholecystectomy with cholangiogram
2. Primary open umbilical hernia repair
Anesthesia Type: General
Specimen / Cultures: Gallbladder and contents
Estimated Blood Loss: 7 cc
Complications: None
Operative Findings: 2 cm umbilical hernia defect containing preperitoneal fat, this was close primarily with 0 PDS. Critical view of safety obtained prior to cholangiogram which demonstrated no distal filling defects however we are unable to
opacify the proximal hepatic ducts, due to significant contrast leakage. Duct ligated with a clip followed by a 0 PDS Endoloop.
POST OP PLAN:
Imaging: None
Labs: Routine AM
Diet: Advance to Regular as tolerated
Analgesia: Tylenol 650mg q6 Lorenza, Alix 5mg q6 PRN, Dilaudid 0.5mg q2h PRN
Neuro/vascular checks: q4h
AC/AP: Hold Therapeutic AC, Ok for DVT PPx
Activity: Ad Michelle
Wound/Incisions/Drains: Routine
Abx: None
Dispo: RNF, anticipate discharge home tomorrow provided LFTs are stable.
--- NOTE | 2023-10-27 17:51 | OR.RPT ---
Operative Report
Operative Report
Patient Name: Mo Saldana
: 1960
Date of Operation: 10/27/2023
Preoperative Diagnosis: Chronic cholecystitis, umbilical hernia
Postoperative Diagnosis: Same
Procedure(s):
Laparoscopic Cholecystectomy with Cholangiogram
Primary open umbilical hernia repair
Surgeon(s):
Dr. Max
Track Repair Supervisor(s):
MONI Hilario
MONI Hodges
Anesthesia: General
Estimated Blood Loss: 7 cc
Urine Output: None
Drains/Lines/Implants: None
Specimens:
1. Gallbladder and contents
HPI/Surgical Indications:
This is a 63-year-old male who presents with several days of postprandial right upper quadrant abdominal pain. Outpatient workup including a HIDA scan concerning for chronic cholecystitis. Risks/Benefits/Alternatives were discussed at length, and
the patient agreed to proceed with surgery.
Findings:
The patient was noted to have mild gallbladder inflammation with edema in the cystic triangle. A Critical View of Safety was obtained. A cholangiogram showed no filling defects in the CBD, however the proximal hepatic ducts were not able to be the
visualized due to contrast leaking. The cystic duct stump was ligated with a clip followed by a 0 PDS Endoloop. There was brisk flow of dye into the duodenum.
Procedure Description:
The patient was brought to the Operating Room and placed in the supine position with one arm tucked. Following uneventful induction of general endotracheal anesthesia, an orogastric tube was placed. The abdomen was prepped and draped in the usual
sterile fashion. A timeout was performed confirming the procedure, consent, and that IV antibiotics were infused and sequential compression devices were confirmed to be on. The abdomen was entered using an infraumbilical open Leanna technique with a
12mm trochar. Pneumoperitoneum to 15 mmHg pressure was obtained without difficulty and we confirmed that no injury had occurred during our entry. The patient was positioned in reverse Trendelenberg and rotated with the right side up slightly. Two
5mm trocars were then placed along the right subcostal margin, and a 12 mm port in the epigastrium. A locking grasping forceps was placed on the fundus of the gallbladder where it was then retracted cephalad and to the right. Using appropriate
grasping instruments, the peritoneum overlying the triangle of Calot was incised and extended superiorly on both the anterior and posterior gallbladder kc. The infundibulum was dissected off the cystic plate. The cystic triangle was dissected
until a critical view of safety was achieved. The cystic artery was medialized, dissected and controlled with 2 proximal clips and 1 distal. The cystic duct/gallbladder junction in turn was identified, dissected circumferentially and a clip was
placed. A ductotomy was made and a cholangiocatheter on an Avila clamp was inserted into the cystic duct. There was some mucus/Hydrops noted in the duct, I was unable to get free flow of bile back.
A C-arm was draped and brought into the field. An intra-operative cholangiogram was performed and was noted to have:
No filling defects in the visualized biliary tree
No significant biliary dilation
Brisk flow of contrast into the duodenum
We were unable to opacify the common hepatic or secondary branches, despite repositioning the patient and catheter several times due to leaking.
The catheter was then removed and the cystic duct was controlled with a clip followed by a 0 PDS Endoloop. After ensuring both the artery and duct were divided, the gallbladder was freed from the liver using electrocautery. There was no spillage
of bile or stones. The gallbladder bed was inspected and excellent hemostasis was obtained. The gallbladder was extracted through the 12 mm trocar site using an endocatch bag. The abdomen was again irrigated and excellent hemostasis was assured.
All remaining trocars were then removed and the pneumoperitoneum was evacuated. The 12 mm epigastric trocar site was closed using 0 PDS suture. We then turned our attention to the umbilicus. The incision was extended and the hernia sac was
encircled and taken off of the overlying dermis. The hernia sac was then cleared off of the surrounding fascia. The defect measured roughly 2 cm. Her prior whole through the peritoneum was closed with a simple Vicryl and the fascia was then
closed in turn with a 0 PDS running suture. The umbilicus was then tacked down to the fascia using 2-0 Vicryl suture. The dermis was then approximated with additional interrupted Vicryl sutures. All trocar sites were closed at the skin level using
4-0 Monocryl followed by Dermabond. Overall, the patient tolerated the procedure well and was taken to the Recovery Room postoperatively in stable condition.
I was the attending physician and performed the procedure with assistance from the LEGAL BILLING SPECIALIST as above. I was present for all portions of the case including skin closure.
James Max MD
[2023-10-27] MEDS: DILAUDID 0.25 MG IV (18:09)
[2023-10-27] MEDS: DILAUDID 0.5 MG IV (21:36)
[2023-10-28] MEDS: FLAGYL 500 MG 100 IV ×2 (00:50→08:23)
[2023-10-28] MEDS: NSS 1000 IV (01:50)
[2023-10-28] MEDS: LEVAQUIN 150 IV (01:50)
[2023-10-28] MEDS: DILAUDID 0.5 MG IV (03:41)
[2023-10-28 07:05] LABS: % Basophils 0.1 % (0-2); % Immature Granulocytes 0.2 % (0-0.5); % Lymphocytes 6.5 % (20.5-51.1); % Monocytes 5.4 % (1.7-9.3); % Neutrophils 87.8 % (42.2-75.2); Absolute Lymphocytes 0.7 10^3/uL (1.2-3.4); Absolute Monocytes 0.6 10^3/uL (0.1-0.6); Absolute Neutrophils 10.1 10^3/uL (1.4-6.5); Hematocrit 42.1 % (39.0-52.0); Hemoglobin 15.3 g/dL (13.0-18.0); Mean Corp Hgb Conc. 36.3 g/dL (33.0-37.0); Mean Corpuscular Hgb 33.3 pg (27.0-31.0); Mean Corpuscular Volume 91.5 fL (80.0-94.0); Mean Platelet Volume 9.6 fL (7.4-10.4); Nucleated Red Blood Cells % 0 % (-); Platelet Count 175 10^3/uL (130-400); Red Cell Dist. Width 12.9 % (11.5-14.5); White Blood Cell Count 11.4 10^3/uL (4.8-10.8)
[2023-10-28 07:28] VITALS: BP 127/72
[2023-10-28 07:43] LABS: ALT (SGPT) 54 U/L (0-50); AST (SGOT) 53 U/L (17-59); Albumin 3.9 g/dl (3.5-5.0); Alkaline Phosphatase 62 U/L (38-126); Blood Urea Nitrogen 14 mg/dl (9-20); Carbon Dioxide 19 mmol/L (22-30); Chloride 107 mmol/L (98-107); Estimated Creatinine Clearance 78 ml/min; Glucose 143 mg/dl (70-99); Potassium 4.1 mmol/L (3.5-5.1); Sodium 136 mmol/L (135-145); Total Bilirubin 0.4 mg/dl (0.2-1.3); eGFR > 60.00
[2023-10-28] MEDS: FIBERCON 625 MG PO (08:20)
[2023-10-28] MEDS: ZYRTEC 10 MG PO (08:21)
[2023-10-28] MEDS: VISBIOME 1 CAP PO (08:21)
[2023-10-28] MEDS: PROTONIX 40 MG PO (08:22)
[2023-10-28] MEDS: THERAGRAN 1 TABLET PO (08:22)
[2023-10-28] MEDS: NICODERM TRANSDERMAL 21 MG TRANSDERM (08:22)
[2023-10-28] MEDS: NON-FORMULARY ITEM 2.5 MG PO (09:41)
--- NOTE | 2023-10-28 11:46 | CM ---
Case management following for discharge planning
Pt for discharge today
Reports has ride home with family
Plan - anticipate home no needs
--- NOTE | 2023-10-28 11:49 | W.PN.HOSP.TC ---
Today's Communication/Plan
-
dc to home
Assessment / Plan
Assessment / Plan
Assessment:
Recurrent biliary colic/possible chronic cholecystitis
- Discs of abdominal ultrasound/HIDA scan being scanned into chart, reviewed, HIDA scan consistent with acute Cholecystitis
- repeat US: There is a contracted gallbladder with wall thickening and positive sonographic Burns sign. No pericholecystic fluid present. Findings are similar to the outside ultrasound 10/16/2023 and likely represent cholecystitis, possibly chronic.
The common bile duct is within normal limits measuring 5 mm
- Levaquin/Flagyl, as per surg, okay to stop
- pain control, (Tramadol ordered prn by surg)anti-emetics
History of ulcerative colitis
IBS
- continue bismuth, simethicone, Protonix
Hyperlipidemia
- continue statin
Anxiety
- continue Ativan
Migraine history
History of nephrolithiasis
Active smoker
- nicotine patch
Marijuana user
DVT ppx: SC heparin
Code: Full
dc to home
see dictated note
Anticipated Discharge: Today
Subjective/Interval History
-
Date of Service: October 28, 2023
feels well, tolerating diet, cleared by Surg to be discharged
Objective Data
-
Labs:
Laboratory Results
10/28/23
06:05
WBC 11.4 H
Hgb 15.3
Hct 42.1
Plt Count 175
Sodium 136
Potassium 4.1
Chloride 107
Carbon Dioxide 19 L
BUN 14
Creatinine 1.0
Glucose 143 H
Calcium 9.0
Total Bilirubin 0.4
AST 53
ALT 54 H
Alkaline Phosphatase 62
Vital Signs:
Vital Signs
Temp Pulse Resp BP Pulse Ox
98.0 F 87 18 127/72 96
10/28/23 07:28 10/28/23 07:28 10/28/23 07:28 10/28/23 07:28 10/28/23 08:00
I&O
10/27/23 10/28/23 10/29/23
06:59 06:59 06:59
Intake Total 2049 250 / 250
Output Total 350 / 350
Balance 2049 -100 / -100
Review of Systems
-
History Source: Patient
Constitutional: Denies Fever
EENT: Reports No Symptoms Reported
Respiratory: Reports No Symptoms
Cardiac: Reports No Symptoms
Abdomen/GI: Reports Abdominal Pain
Musculoskeletal: Reports No Symptoms
Neuro: Reports No Symptoms
Physical Exam
-
General: No Apparent Distress
HEENT: Normocephalic and Atraumatic
Respiratory: Negative Wheezes
Cardiac: Regular Rhythm and S1/S2
GI: Nondistended, Normal Bowel Sounds and Tender
Genito-urinary: No Costovertebral Tender
Musculoskeletal: No Clubbing, No Cyanosis and No Edema
Neuro: Awake, Alert, Oriented and AO x 3
Psych: Calm
--- NOTE | 2023-10-28 11:56 | W.DS.TRANS ---
DC Summary - [employer]
-
Discharge Instructions:
Discharge Diagnosis/Procedures Chronic cholecystitis. Umbilical hernia.
Laparoscopic cholecystectomy, primary umbilical
hernia repair
Diet Low Fat
Activity No strenuous activity
Driving Restrictions No driving for 24 hours
Bathing Restrictions OK to Shower
Blood Work CBC, CMP in 1-2 weeks
Instructions:
Stand-Alone Forms:
Changes to Home Medications: Yes
Discharge Medications:
DC Medications w/original date entered in [facility]
bismuth subsalicylate 262 mg tablet (Pepto-Bismol) 524 mg PO PRN PRN indigestion 10/24/23
cetirizine 10 mg tablet (Zyrtec) 10 mg PO DAILY Allergies 10/24/23
cyclobenzaprine 10 mg tablet 5 mg PO PRN PRN pain 10/24/23
fiber 625 tab PO BID Supplement 10/24/23
fluticasone propionate 50 mcg/actuation nasal spray,suspension (Flonase Allergy Relief) 1 spray intranasal BID Allergies 10/24/23
hyoscyamine 0.15 mg tablet 1.25 mg PO PRN PRN as needed stomach pain 10/24/23
lactobacillus combination no.4 3 billion cell capsule (Probiotic) 3,000 mmu cells PO DAILY Supplement 10/24/23
lorazepam 0.5 mg tablet (Ativan) 0.5 mg PO DAILY PRN anxiety 10/24/23
methscopolamine 2.5 mg tablet 2.5 mg PO ACHS Gastrointestinal Issue 10/24/23
multivitamin 1 tab PO DAILY Supplement 10/24/23
omega 0-dmj-can-fish oil 1,000 mg (120 mg-180 mg) capsule (Fish Oil) 1 cap PO HS Supplement 10/24/23
ondansetron HCl 4 mg tablet 4 mg PO Q8H PRN nausea 10/24/23
simethicone 125 mg tablet 125 mg PO PRN PRN gas 10/24/23
simvastatin 40 mg tablet (Zocor) 40 mg PO QPM High Cholesterol 10/24/23
sumatriptan succinate 100 mg tablet (Imitrex) 100 mg PO PRN PRN migraine 10/24/23
acetaminophen 325 mg tablet 650 mg (2 x 325 mg) PO Q6HPRN PRN mild pain #14 tabs 10/28/23
ibuprofen 600 mg tablet 600 mg PO Q6H PRN pain #14 tabs 10/28/23
pantoprazole 20 mg tablet,delayed release 20 mg PO BID Gastrointestinal Issue 10/28/23
tramadol 50 mg tablet 25 mg (1/2 x 50 mg) PO Q6HPRN PRN severe pain/breakthrough pain #8 tabs 10/28/23
Home Medication Changes
Tramadol, Ibuprofen prn are new
Pending Results: Yes
Additional Pending Results:
surgical pathology
[2023-10-28] MEDS: NON-FORMULARY ITEM PO (13:09)
[2023-10-28 13:15] VITALS: BP 149/89
--- NOTE | 2023-10-28 14:06 | W.PN.GS2 ---
Today's Communication / Plan
-
Dispo
Assessment / Plan
-
63 yo male with intermittent upper abdominal pain with nausea and belching. Outpatient workup consistent with chronic cholecystitis. Postoperative day 1 from a laparoscopic cholecystectomy with incomplete cholangiogram. Overall doing well,
expected postoperative course.
Okay to DC home today off antibiotics.
Will plan for outpatient blood work as well as MRCP to rule out persistent choledocholithiasis.
Time Spent
Total Time Spent with Patient (in minutes): 20
Subjective Data
-
Date of Service: October 28, 2023
Interval Events:
No acute events overnight. Slept well. Pain Controlled. Denies Nausea/Vomiting, +bowel function. Tolerating diet.
Objective Data
-
Intake and Output
10/27/23 10/28/23 10/29/23
06:59 06:59 06:59
Intake Total 2049 250 / 250
Output Total 350 / 350
Balance 2049 -100 / -100
Intake:
Oral fluids 960 / 960
IV fluids (Total) 740 / 740
IV piggybacks 350 / 350 250 / 250
Output:
Urine, Voided 350 / 350
Other:
Number of approximated SMALL 2
amounts of urine
Number of approximated MODERATE 4
amounts of urine
Vital Signs
Temp Pulse Resp BP Pulse Ox
97.8 F 90 17 149/89 97
10/28/23 13:15 10/28/23 13:15 10/28/23 13:15 10/28/23 13:15 10/28/23 13:15
Lab Results
10/28/23 06:05
10/28/23 06:05
Calcium 9.0 mg/dl (8.4-10.2) 10/28/23 06:05
Total Bilirubin 0.4 mg/dl (0.2-1.3) 10/28/23 06:05
AST 53 U/L (17-59) 10/28/23 06:05
ALT 54 U/L (0-50) H 10/28/23 06:05
Alkaline Phosphatase 62 U/L (38-126) 10/28/23 06:05
Total Protein 6.0 g/dl (6.3-8.2) L 10/28/23 06:05
Albumin 3.9 g/dl (3.5-5.0) 10/28/23 06:05
Physical Exam
-
GENERAL/NEURO: Awake, Alert, no distress
CHEST: Unlabored breathing on RA
ABDOMEN: Soft, Non-Tender, Non-Distended, incisions clean dry and intact.
== END 2023-10-28 13:57 | disposition home or self-care (01) | DRG 418 ==
LOC: 3 WEST ACU 22:18
PROVIDERS: Emergency Medicine; Internal Medicine; Surgery; ADMITTING PHYSICIAN Hospitalist; ATTENDING PHYSICIAN Internal Medicine; CONSULT PHYSICIAN Internal Medicine Gastroenterology; EMERGENCY PHYSICIAN Student in an Organized Health Care Education/Training Program; FAMILY PHYSICIAN Family Medicine; OTHER PHYSICIAN Surgery
PROC: 0WQF0ZZ Repair Abdominal Wall, Open Approach (ICD-10-PCS; 2023-10-27)
PROC: BF532Z0 Other Imaging of Gallbladder and Bile Ducts using Fluorescing Agent, Intraoperative (ICD-10-PCS; 2023-10-27)
PROC: 0FT44ZZ Resection of Gallbladder, Percutaneous Endoscopic Approach (ICD-10-PCS; 2023-10-27)
DX: K80.12 Calculus of gallbladder with acute and chronic cholecystitis without obstruction (principal); K51.90 Ulcerative colitis, unspecified, without complications; K42.9 Umbilical hernia without obstruction or gangrene; R10.9 Unspecified abdominal pain; E78.5 Hyperlipidemia, unspecified; F41.9 Anxiety disorder, unspecified; F17.210 Nicotine dependence, cigarettes, uncomplicated; G43.909 Migraine, unspecified, not intractable, without status migrainosus; F12.90 Cannabis use, unspecified, uncomplicated; Z87.442 Personal history of urinary calculi; Z88.1 Allergy status to other antibiotic agents; Z88.0 Allergy status to penicillin; Z88.8 Allergy status to other drugs, medicaments and biological substances; Z79.51 Long term (current) use of inhaled steroids; Z87.19 Personal history of other diseases of the digestive system
CPT/HCPCS: 88304; 74177; 74300; 76000; 76705; 80053; 82962; 83690; 85025; 85027; 93005; 96374; 99284; A4300; Q9967

== ENCOUNTER 2024-01-21 19:48 | Inpatient (IN) | payer OTHER, SELFPAY ==
[2024-01-21 14:57] VITALS: BP 137/94
[2024-01-21 15:38] LABS: % Basophils 0.3 % (0-2); % Eosinophils 0.5 % (0-6); % Immature Granulocytes 0.2 % (0-0.5); % Lymphocytes 15.8 % (20.5-51.1); % Monocytes 10.4 % (1.7-9.3); % Neutrophils 72.8 % (42.2-75.2); Absolute Eosinophils 0.1 10^3/uL (0-0.7); Absolute Lymphocytes 1.5 10^3/uL (1.2-3.4); Absolute Neutrophils 7.1 10^3/uL (1.4-6.5); Hematocrit 44.4 % (39.0-52.0); Mean Corpuscular Hgb 33.5 pg (27.0-31.0); Mean Corpuscular Volume 93.1 fL (80.0-94.0); Mean Platelet Volume 9.8 fL (7.4-10.4); Nucleated Red Blood Cells % 0 % (-); Platelet Count 180 10^3/uL (130-400); Red Blood Cell Count 4.77 10^6/uL (4.70-6.10); Red Cell Dist. Width 13.4 % (11.5-14.5); White Blood Cell Count 9.7 10^3/uL (4.8-10.8)
[2024-01-21 15:46] LABS: ALT (SGPT) 452 U/L (0-50); AST (SGOT) 312 U/L (17-59); Albumin 4.5 g/dl (3.5-5.0); Alkaline Phosphatase 224 U/L (38-126); Blood Urea Nitrogen 15 mg/dl (9-20); Calcium 9.5 mg/dl (8.4-10.2); Carbon Dioxide 26 mmol/L (22-30); Chloride 100 mmol/L (98-107); Glucose 111 mg/dl (70-99); Lipase 103 U/L (23-300); Potassium 4.1 mmol/L (3.5-5.1); Sodium 140 mmol/L (135-145); Total Protein 7.2 g/dl (6.3-8.2); eGFR > 60.00
--- NOTE | 2024-01-21 17:06 | ED.GENMED ---
History of Present Illness
General
Chief Complaint: Abdominal Symptoms
Time Seen by Provider: 01/21/24 15:25
History of Present Illness
History of Present Illness:
TIME OF INITIAL ENCOUNTER: 5 PM
HPI: The patient has history of cholecystectomy performed by Dr. Max 3 months ago. 2 weeks ago, he had a general unwell feeling including nausea and some increased discomfort. He had an ultrasound of the right upper quadrant that reports was
unremarkable.
EXAM:
GENERAL: Well appearing in minimal distress
HEENT: Moist oral mucosa
CARDIOVASCULAR: No murmurs, normal heart rate, regular rhythm, No chest wall tenderness
PULMONARY: No respiratory distress, breath sounds are clear and equal
ABDOMEN: Soft with no peritoneal signs, mild upper abdominal tenderness
NEUROLOGIC: Excellent strength all extremities, no coordination deficits
PSYCHIATRIC: Appropriate mental status, normal insight and judgement
EXTREMITIES: Nontender, no edema, moves all extremities equally
SKIN: No rash, no lesions
NUMBER AND COMPLEXITY OF PROBLEMS ADDRESSED AT THE ENCOUNTER
� Chronic conditions affecting care: Cholecystectomy, IBS, anxiety
� Acute Exacerbation and/or Progression of Chronic Illness: This is an acute problem
� Differential Diagnosis includes: Choledocholithiasis, surgical complication, abscess
AMOUNT AND/OR COMPLEXITY OF DATA TO BE REVIEWED AND ANALYZED
� I performed an independent evaluation of and my interpretation is:
EKG: Sinus 77, normal axis, nonspecific ST abnormality
CT: CT imaging shows choledocholithiasis
X-rays:
Laboratory Studies: White count 9.7, hemoglobin 16.0, mild lymphocytopenia noted, total bili 5.0, AST 312, ALT 252, alk phos 224
Other:
� Review of other/old records: I reviewed the admission for cholecystitis from the summer
� Clinical information was obtained by an independent historian: None needed
� Prescriptions/Medications Considered but not given:
� Further testing considered but not performed:
RISK OF COMPLICATIONS AND/OR MORBIDITY OR MORTALITY OF PATIENT MANAGEMENT
� Social determinants of health affecting care: Lives at home
� Discussion with other providers: Discussed with Dr. Gutierrez who indicates they will evaluate patient in the morning and he is to stay n.p.o., I also notified general surgery on-call and they are aware; hospitalist for admission
� Escalation of care including admission/observation vs risk of discharge considered: Given the abnormal LFTs with choledocholithiasis, will plan for admission to the hospital
ANY OTHER UPDATES:
6:45 PM: I reassessed patient and he appears fairly comfortable.
Past History
Past History
ED Past Medical History: Psychiatric (anxiety) and Other (Chronic ulcerative colitis, IBS)
ED Past Surgical History: Orthopedic and Tonsilectomy
Social History
Tobacco: Non-smoker
Alcohol: Occasional
Personal:
Living: with family
Employment: Employed
Phy Exam
Physical Exam
Physical Exam:
See HPI
Course
Orders/Labs/Results
Orders:
Orders
01/21/24 15:01
Electrocardiogram (*1) Urgent
Reason for Study: Abdominal Pain
EKG- Treatment ONCE
01/21/24 15:22
Complete Blood Count/With Diff Urgent
Comprehensive Metabolic Panel Urgent
Lipase Urgent
01/21/24 17:15
CT Abd/pelvis W Iv Cont Urgent
Comment:
Reason For Exam: worsening LFTs; pain; reports neg RUQ US
01/21/24 18:58
0.9% Sodium Chloride 1000 ml [Nss] 1,000 ml IV BOLUS
01/21/24 19:19
Admit/Transfer Patient As Directed
Co-Sign Provider:
Level of Care: Inpatient admission
Assign to:: Medical/Surgical
Physician / Group: hospitalist
Diagnosis: choledocholithiasis
Reason for Hospitalization: choledocholithiasis
Expected length of stay greater than two midnights?: Yes
ELOS- Estimated Length of Stay in days: 2
I certify the patient meets the requirements for IP care: Yes
PRN Pain Medication Management As Directed
May give lesser potent ordered pain med per pt: Yes
preference::
Protocol:: Medication orders for pain may be administered in a
manner that supports deferring to patient preference
when the pt is:
- Requesting an ordered lesser potent pain medication.
Least to most potent pain medications are defined
as: acetaminophen < NSAID < tramadol < opioids
(morphine, oxycodone, hydromorphone).
- Requesting a lesser dose of the same medication IF
ORDERED.
- Requesting a less intrusive route of administration
if both routes are prescribed by the provider (PO <
IV).
01/21/24 19:21
Code Status As Directed
Resuscitation Status: Full Code
01/21/24 20:22
Acetaminophen [Tylenol] 650 mg PO Q4HPRN PRN
Cyclobenzaprine HCl [Flexeril] 5 mg PO DAILYPRN PRN
Dextrose 5%/Lactringers 1000ML [D5lr] 1,000 ml IV 125 mls/hr
HYDROmorphone [Dilaudid] 0.5 mg IV Q4HPRN PRN
Ketorolac [Toradol] 10 mg IV Q6HPRN PRN
Lorazepam [Ativan] 0.5 mg PO DAILYPRN PRN
Ondansetron Injectable [Zofran] 4 mg IV Q6HPRN PRN
01/21/24 20:22
Activity As Directed
Activity Level: With Assistance
Vital Signs As Directed
Frequency: Per unit guidelines
DX Deep Vein Thrombosis Video Routine
01/21/24 20:28
Al Hydroxide/mg Carbonate [Gaviscon Liquid] 15 ml PO DAILYPRN PRN
01/21/24 20:30
Bismuth Subsalicylate [Pepto-Bismol] 2 tablet PO DAILYPRN PRN
01/21/24 20:33
Sumatriptan Succinate [Imitrex] 100 mg PO DAILYPRN PRN
01/21/24 22:00
methscopolamine 2.5 mg PO ACHS
01/22/24 07:44
Complete Blood Count/No Diff IN AM
Magnesium IN AM
01/22/24 08:00
Cetirizine HCl [Zyrtec] 10 mg PO DAILY
Pantoprazole [Protonix IV] 40 mg IV DAILY
01/22/24 18:00
Enoxaparin Sodium [Lovenox] 40 mg SC QPM
01/23/24 Breakfast
NPO
Allow oral meds: Yes
Allow clear liquids: No
NPO for procedure after (time): 0000 for ERCP
Abnormal Lab Results
01/21/24
15:22
MCH 33.5 H pg
(27.0-31.0)
Absolute Neuts (auto) 7.1 H 10^3/uL
(1.4-6.5)
Absolute Monos (auto) 1.0 H 10^3/uL
(0.1-0.6)
Lymphocytes % 15.8 L %
(20.5-51.1)
Monocytes % 10.4 H %
(1.7-9.3)
Glucose 111 H mg/dl
(70-99)
Total Bilirubin 5.0 H mg/dl
(0.2-1.3)
AST 312 H U/L
(17-59)
ALT 452 H U/L
(0-50)
Alkaline Phosphatase 224 H U/L
(38-126)
01/21/24 15:22
01/21/24 15:22
Vital Signs
Initial and Last Documented VS:
Initial Vital Signs
Temp Pulse Resp BP Pulse Ox
98.1 F 85 16 137/94 97
01/21/24 14:57 01/21/24 14:57 01/21/24 14:57 01/21/24 14:57 01/21/24 14:57
Last Documented Vital Signs
Temp Pulse Resp BP Pulse Ox
97.9 F 70 18 142/80 98
01/23/24 17:30 01/23/24 17:30 01/23/24 17:30 01/23/24 17:30 01/23/24 17:30
*Critical Care Note
Total Time (30-74mins, 75-104mins- exclusive of procedures): Not Applicable
ED Attending Note
-
Portions of this chart may have been created with voice recognition software.� Occasional wrong word or��sound alike� substitutions may have occurred due to the inherent limitations of voice recognition software.
Discharge Plan
Departure
Patient Disposition: Admit
Date of Disposition: 01/21/24
Time of Disposition: 18:51
Presentation/result/management discussed w/ accepting MD/DO: Hospitalist
Discharge Problem:
Choledocholithiasis
Interventions
Interventions:
*Risk Screen - Suicide Last Done: 01/21/24 20:33
*General Assessment Last Done: 01/21/24 14:57
*Neglect/Abuse Screening Last Done: 01/21/24 14:57
ED- Fall Risk Assessment Last Done: 01/21/24 16:44
*ED COVID-19 Vaccine History Last Done: 01/21/24 20:33
*Nursing Disposition Last Done: 01/21/24 20:19
WO-Yswofx-Qazirridkh Assessment Last Done: 01/21/24 16:44
Discharge Date and Time
Discharge Date/Time: 01/21/24 20:24
--- NOTE | 2024-01-21 19:25 | HPS.HSE ---
Family Physician
-
Family Physician: Cecil Saez
Chief Complaint
-
Abdominal pain
History of Present Illness
This is a 61-year-old with history of irritable bowel syndrome and ulcerative colitis who also has a history of cholecystitis status post cholecystectomy in October who presents to the emergency department with abdominal pain.
Patient is status post cholecystectomy in October. 2 weeks afterwards he developed abdominal pain and elevated liver enzymes. 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 Follow-up labs showed resolution of LFTs and unclear whether he had imaging
but the patient was told that the stone had passed. Over the last 4 days has been having abdominal pain and nausea. He had a vomiting over the weekend. He had a evaluation at doctors office and had elevated LFTs yesterday. He was into the
Emergency Department for evaluation.
In the emergency department patient was afebrile, blood pressure was 137/84 with a pulse of 85 and oxygen saturation of 90% on room air. Temp was 98.1. CBC was unremarkable. CT of the abdomen pelvis showed obstruction of the common bile duct with
a 4.2 x 3.2 mm stone. There is hepatic duct dilation. There is incidental finding of a 2.3 cm infrarenal fusiform abdominal aortic aneurysm. There is also incidental finding of diverticulosis. BUN and electrolytes and creatinine were within
normal limits. Total bilirubin was elevated at 5.0 with elevations in AST and ALT as well. Lipase was within normal limits.
Medical History
Past Medical History
Past Medical History: Reports GERD and Other (Ulcerative colitis, IBD, migraine)
Past Surgical History: Reports Cholecystectomy
Social History
Tobacco: Non-smoker
Alcohol: None
Drug: None
Personal:
Living: With Family
Employment: Employed
Family History
Family History: Not pertinent
Allergies / Home Medications
Allergies reflects when Allergies were last updated in [facility].
Home Medications with original date entered in [facility]
Allergy/Medication List:
Allergies
Allergy/AdvReac Type Severity Reaction Status Date / Time
Penicillins Allergy Intermediate Rash Verified 01/21/24 14:57
cephalexin [From Keflex] Allergy Unknown Verified 01/21/24 14:57
erythromycin base Allergy Unknown Verified 01/21/24 14:57
levofloxacin [From Levaquin] Allergy Nausea / Verified 01/21/24 14:57
Vomiting
sertraline [From Zoloft] Allergy Hives Verified 01/21/24 14:57
Home Medications
bismuth subsalicylate 262 mg tablet (Pepto-Bismol) 524 mg PO DAILYPRN PRN indigestion 10/24/23
cetirizine 10 mg tablet (Zyrtec) 10 mg PO DAILY Allergies 10/24/23
cyclobenzaprine 10 mg tablet 5 mg PO DAILYPRN PRN back pain 10/24/23
fluticasone propionate 50 mcg/actuation nasal spray,suspension (Flonase Allergy Relief) 1 spray intranasal BID Allergies 10/24/23
lorazepam 0.5 mg tablet (Ativan) 0.5 mg PO DAILYPRN PRN anxiety 10/24/23
methscopolamine 2.5 mg tablet 2.5 mg PO ACHS Gastrointestinal Issue 10/24/23
multivitamin 1 tab PO DAILY Supplement 10/24/23
omega 7-wap-nic-fish oil 1,000 mg (120 mg-180 mg) capsule (Fish Oil) 1 cap PO HS Supplement 10/24/23
simethicone 125 mg tablet 125 mg PO BIDPRN PRN gas 10/24/23
simvastatin 40 mg tablet (Zocor) 40 mg PO QPM High Cholesterol 10/24/23
sumatriptan succinate 100 mg tablet (Imitrex) 100 mg PO DAILYPRN PRN migraine 10/24/23
pantoprazole 20 mg tablet,delayed release 20 mg PO BID Gastrointestinal Issue 10/28/23
tramadol 50 mg tablet 25 mg (1/2 x 50 mg) PO Q6HPRN PRN severe pain/breakthrough pain #8 tabs 10/28/23
Al hyd-Mg tr-alg ac-sod bicarb 80 mg-14.2 mg chewable tablet (Gaviscon) 2 tab PO DAILYPRN PRN indigestion 01/21/24
Bifidobacterium infantis 4 mg capsule (Align) 4 mg PO DAILY 01/21/24
calcium polycarbophil 625 mg tablet (FiberCon) 625 mg PO BID 01/21/24
Review of Systems
-
History Source: Patient
Constitutional: Reports No Symptoms
EENT: Reports No Symptoms
Respiratory: Reports No Symptoms
Cardiac: Reports No Symptoms
Abdomen/GI: Reports Abdominal Pain and Nausea
: Reports No Symptoms
Musculoskeletal: Reports No Symptoms
Skin: Reports No Symptoms
Neurological: Reports No Symptoms
Endocrine: Reports No Symptoms
Hematologic/Lymphatic: Reports No Symptoms
Psych: Reports No Symptoms
Physical Exam
Vital Signs
Vital Signs
Temp Pulse Resp BP Pulse Ox
98.1 F 85 16 137/94 97
01/21/24 14:57 01/21/24 14:57 01/21/24 14:57 01/21/24 14:57 01/21/24 14:57
Physical Exam
General: Well Developed, Well Nourished and Pain
HEENT: NormoCephalic, Anicteric, Moist mucous membranes and Atraumatic
Respiratory: Clear
Cardiac: S1/S2 and Regular Rhythm
Breast: Deferred by me
GI: Non Distended, Normal Bowel Sounds and Tender
Rectal: Deferred by Provider
Genito-urinary: Deferred by me
Musculoskeletal: No Clubbing, No Cyanosis and No Edema
Skin: Warm
Neuro: AO x 3
Hematologic/Lymphatic: No Lymphadenopathy
Psych: Calm
Laboratory Results
-
01/21/24 15:22
01/21/24 15:22
Laboratory Results
Total Bilirubin 5.0 mg/dl (0.2-1.3) H 01/21/24 15:22
AST 312 U/L (17-59) H 01/21/24 15:22
ALT 452 U/L (0-50) H 01/21/24 15:22
Alkaline Phosphatase 224 U/L (38-126) H 01/21/24 15:22
Lipase 103 U/L (23-300) 01/21/24 15:22
Impression/Plan
-
IMPRESSION:
61-year-old with history of ulcerative colitis who recently had acute cholecystitis status post cholecystectomy who presents to the emergency department with abdominal pain and was found to have acute choledocholithiasis with a 4 mm common bile duct
stone and hepatic or bile duct dilatation. No signs of acute infection at this time. Elevated bilirubin. No cholangitis at this time.
PLAN:
1. Choledocholithiais
- admit to med/surg
- npo
- iv fluids with d5 lr
- cultures if spike and start abx
- pain control and antiemetics
- trend lfts
- GI consultation with likely ERCP in am
DVT PPX - lovenox sq
Code status - full code
[2024-01-21] MEDS: NSS 1000 IV (19:29)
[2024-01-21 19:30] VITALS: BP 144/92
[2024-01-21 19:31] VITALS: BMI 33.0
[2024-01-21 20:07] VITALS: BP 145/89
[2024-01-21 20:24] VITALS: BP 150/90; BMI 32.4
[2024-01-21] MEDS: NON-FORMULARY ITEM 2.5 MG PO (21:49)
[2024-01-21] MEDS: ZOFRAN 4 MG IV (21:50)
[2024-01-21] MEDS: D5LR 1000 IV (21:50)
[2024-01-21] MEDS: TORADOL 10 MG IV (21:50)
[2024-01-21 23:15] VITALS: BP 135/68
[2024-01-22] MEDS: D5LR 1000 IV ×2 (05:33→16:34)
[2024-01-22 07:26] VITALS: BP 106/55
[2024-01-22 08:31] LABS: Hematocrit 40.9 % (39.0-52.0); Hemoglobin 14.4 g/dL (13.0-18.0); Mean Corp Hgb Conc. 35.2 g/dL (33.0-37.0); Mean Corpuscular Hgb 33.2 pg (27.0-31.0); Mean Corpuscular Volume 94.2 fL (80.0-94.0); Mean Platelet Volume 10.1 fL (7.4-10.4); Platelet Count 165 10^3/uL (130-400); Red Blood Cell Count 4.34 10^6/uL (4.70-6.10); Red Cell Dist. Width 13.5 % (11.5-14.5); White Blood Cell Count 4.6 10^3/uL (4.8-10.8)
[2024-01-22] MEDS: FLAGYL 500 MG 100 IV ×2 (08:37→16:34)
[2024-01-22] MEDS: ZYRTEC 10 MG PO (08:38)
[2024-01-22] MEDS: PROTONIX IV 40 MG IV (08:38)
[2024-01-22] MEDS: NSS (PRESERVATIVE FREE) 10 ML IV (08:38)
[2024-01-22] MEDS: NON-FORMULARY ITEM 2.5 MG PO ×2 (08:39→22:35)
[2024-01-22] MEDS: TORADOL 10 MG IV ×3 (08:43→22:35)
[2024-01-22 08:50] LABS: ALT (SGPT) 425 U/L (0-50); AST (SGOT) 279 U/L (17-59); Albumin 3.6 g/dl (3.5-5.0); Alkaline Phosphatase 192 U/L (38-126); Blood Urea Nitrogen 11 mg/dl (9-20); Calcium 8.8 mg/dl (8.4-10.2); Carbon Dioxide 24 mmol/L (22-30); Chloride 104 mmol/L (98-107); Direct Bilirubin 1.8 mg/dl (0.0-0.4); Estimated Creatinine Clearance 98 ml/min; Glucose 100 mg/dl (70-99); Magnesium 1.8 mg/dl (1.6-2.3); Potassium 4.1 mmol/L (3.5-5.1); Sodium 137 mmol/L (135-145); Total Bilirubin 3.1 mg/dl (0.2-1.3); eGFR > 60.00
[2024-01-22] MEDS: GAVISCON LIQUID 15 ML PO (08:51)
--- NOTE | 2024-01-22 09:35 | W.PN.HOSP.TC ---
Today's Communication/Plan
-
See PN
Assessment / Plan
Assessment / Plan
63yo M with PMHX of atopic d/o, HLD, migraines, GERD, cholycistectomy in Oct 2023 came with 4 dys of RUQ pain and found obstructive choledocjholithiasis.
A/P:
#Obstructive choledocholithiasis
GI for ERCP
IVF
NPO and then advance diet as tolerated
Levaquin (patient did not tolerate PO 2/2 nausea, appropriate to start IV) and FLaguyl
Benadryl 2/2 boilirubin-induced itching
follow LFT
Lipase WNL
#Diverticulosis
High fiber diet
#DJD
follow with PCP
#BPH
recommend Urologist
#Non-obstructing nephrolithiasis
Tamsulosin
#Mild abdominal aortic dilation 2.3cm
#Nicotine dependency
US abd in 6 month with PCP
Smoking cessation advised
NicoDerm PRN
#GERD
#HLD
cont home meds when able
DVT ppx lovenox
Full code
I have spent at least 58min reviewing chart, test results, communication with consultants and direct patient care
Anticipated Discharge: 24 - 48 hours
Subjective/Interval History
-
Date of Service: January 22, 2024
Objective Data
-
Labs:
Laboratory Results
01/22/24
07:44
WBC 4.6 L
Hgb 14.4
Hct 40.9
Plt Count 165
Sodium 137
Potassium 4.1
Chloride 104
Carbon Dioxide 24
BUN 11
Creatinine 0.8
Glucose 100 H
Calcium 8.8
Total Bilirubin 3.1 H
AST 279 H
ALT 425 H
Alkaline Phosphatase 192 H
Vital Signs:
Vital Signs
Temp Pulse Resp BP Pulse Ox
98.6 F 50 18 106/55 96
01/22/24 07:26 01/22/24 07:26 01/22/24 07:26 01/22/24 07:26 01/22/24 07:26
I&O
01/21/24 01/22/24 01/23/24
06:59 06:59 06:59
Intake Total 0 / 0
Output Total 250 / 250
Balance -250 / -250
Review of Systems
-
History Source: Patient
All other systems: Reviewed and negative
Abdomen/GI: Reports Abdominal Pain
Physical Exam
-
General: No Apparent Distress
HEENT: Normocephalic
Respiratory: Clear to Auscultation
Cardiac: Regular Rhythm
GI: Soft, Nondistended and Tender (RUQ)
Musculoskeletal: No Clubbing, No Cyanosis and No Edema
Skin: Warm
Neuro: Awake, Alert, Oriented and AO x 3
Psych: Calm
--- NOTE | 2024-01-22 09:48 | CON.GI ---
Consultation
-
Date/Time Consultation Requested: 02:41 am
Date/Time Consultation Performed: 01/22/24 09:20 am
Requesting Provider: Zaheer Aguilar MD
Performing Provider: Rita Rangel MD
Reason for Consultation: Abdominal pain along CBD stone
Medical History
Chief Complaint / HPI
Chief Complaint: Right upper abdominal pain
History of Present Illness:
The patient is a 63 year-old male who presented to ER complaining from abdominal pain, feeling unwell and nauseous on 01/21/24. He has an associated history of cholecystectomy performed by Dr. Max 3 months ago on 10/27/23. He also had similar
symptoms like abdominal pain and nausea in 2 weeks following his surgery and was told he might have possible stones in his bile duct system but was not obtained any imaging. He had follow up due having elevated LFTs at that time and LFT showed
resolution. The patient reported having second episode of right upper sided abdominal pain and nausea after his surgery since last Friday and he noticed dark urine and fair colored stool the following day. Last BM of the patient was this morning
and had a fair color not brown. He endorses abdominal pain, heartburn,bloating and nausea, irregular bowel movements related his ulcerative colitis. Denies chills, fevers.
Past Medical History
Past Medical History: GERD and Other (Ulcerative colitis, IBD, migraine)
Past Surgical History: Cholecystectomy and Other (orthopedic surgeries from the knee )
Social History
Tobacco: Smoker (1 pack/daily since collage )
Alcohol: None
Drug: None
Personal:
Living: With Family
Family History
Family History: Reviewed & Not Pertinent
Allergies / Home Medications
Allergy/AdvReac Type Severity Reaction Status Date / Time
Penicillins Allergy Intermediate Rash Verified 01/21/24 14:57
cephalexin [From Keflex] Allergy Unknown Verified 01/21/24 14:57
erythromycin base Allergy Unknown Verified 01/21/24 14:57
levofloxacin [From Levaquin] Allergy Nausea / Verified 01/21/24 14:57
Vomiting
sertraline [From Zoloft] Allergy Hives Verified 01/21/24 14:57
�Medication �Instructions �Recorded
bismuth subsalicylate 262 mg 524 mg PO DAILYPRN PRN indigestion 10/24/23
tablet (Pepto-Bismol)
cetirizine 10 mg tablet (Zyrtec) 10 mg PO DAILY Allergies 10/24/23
cyclobenzaprine 10 mg tablet 5 mg PO DAILYPRN PRN back pain 10/24/23
fluticasone propionate 50 1 spray intranasal BID Allergies 10/24/23
mcg/actuation nasal
spray,suspension (Flonase Allergy
Relief)
lorazepam 0.5 mg tablet (Ativan) 0.5 mg PO DAILYPRN PRN anxiety 10/24/23
methscopolamine 2.5 mg tablet 2.5 mg PO ACHS Gastrointestinal 10/24/23
Issue
multivitamin 1 tab PO DAILY Supplement 10/24/23
omega 8-vgt-ixz-fish oil 1,000 mg 1 cap PO HS Supplement 10/24/23
(120 mg-180 mg) capsule (Fish Oil)
simethicone 125 mg tablet 125 mg PO BIDPRN PRN gas 10/24/23
simvastatin 40 mg tablet (Zocor) 40 mg PO QPM High Cholesterol 10/24/23
sumatriptan succinate 100 mg 100 mg PO DAILYPRN PRN migraine 10/24/23
tablet (Imitrex)
pantoprazole 20 mg tablet,delayed 20 mg PO BID Gastrointestinal Issue 10/28/23
release
tramadol 50 mg tablet 25 mg (1/2 x 50 mg) PO Q6HPRN PRN 10/28/23
severe pain/breakthrough pain #8
tabs
Al hyd-Mg tr-alg ac-sod bicarb 80 2 tab PO DAILYPRN PRN indigestion 01/21/24
mg-14.2 mg chewable tablet
(Gaviscon)
Bifidobacterium infantis 4 mg 4 mg PO DAILY 01/21/24
capsule (Align)
calcium polycarbophil 625 mg 625 mg PO BID 01/21/24
tablet (FiberCon)
Review of Systems
-
History Source: Patient
All other systems: A 12 pt ROS was Negative except as stated above in HPI
Constitutional: Reports No Symptoms
EENT: Reports No Symptoms
Respiratory: Reports No Symptoms
Cardiac: Reports No Symptoms
Abdomen/GI: Reports Pain and Other
: Reports No Symptoms and Dark Urine
Musculoskeletal: Reports No Symptoms
Skin: Reports No Symptoms
Neurological: Reports No Symptoms
Vital Signs
Temp Pulse Resp BP Pulse Ox
98.6 F 50 18 106/55 96
01/22/24 07:26 01/22/24 07:26 01/22/24 07:26 01/22/24 07:26 01/22/24 07:26
Physical Exam
Exam
General: Well Developed, Well Nourished, No Apparent Distress and Comfortable
HEENT: Normocephalic and Anicteric
Respiratory: Clear
Cardiac: S1/S2 and Regular Rhythm
Breast: Deferred by me
GI: Soft, Non Tender, Non Distended and Other (Pain to palpation on the right upper abdominal quadrant )
Musculoskeletal: No Clubbing, No Cyanosis and No Edema
Skin: Warm
Neuro: Awake, Alert, Oriented and AO x 3
Psych: Calm
Results
WBC 4.6 10^3/uL (4.8-10.8) L 01/22/24 07:44
Hgb 14.4 g/dL (13.0-18.0) 01/22/24 07:44
Hct 40.9 % (39.0-52.0) 01/22/24 07:44
MCV 94.2 fL (80.0-94.0) H 01/22/24 07:44
Plt Count 165 10^3/uL (130-400) 01/22/24 07:44
Absolute Neuts (auto) 7.1 10^3/uL (1.4-6.5) H 01/21/24 15:22
Sodium 137 mmol/L (135-145) 01/22/24 07:44
Potassium 4.1 mmol/L (3.5-5.1) 01/22/24 07:44
Chloride 104 mmol/L (98-107) 01/22/24 07:44
Carbon Dioxide 24 mmol/L (22-30) 01/22/24 07:44
BUN 11 mg/dl (9-20) 01/22/24 07:44
Creatinine 0.8 mg/dL (0.7-1.3) 01/22/24 07:44
Calcium 8.8 mg/dl (8.4-10.2) 01/22/24 07:44
Total Bilirubin 3.1 mg/dl (0.2-1.3) H 01/22/24 07:44
AST 279 U/L (17-59) H 01/22/24 07:44
ALT 425 U/L (0-50) H 01/22/24 07:44
Alkaline Phosphatase 192 U/L (38-126) H 01/22/24 07:44
Lipase 103 U/L (23-300) 01/21/24 15:22
Diagnostic Image Results:
Abdominal/Pelvis CT:
IMPRESSION:
1. OBSTRUCTING CHOLEDOCHOLITHIASIS in the distal common bile duct.
2. Moderate intrahepatic and extrahepatic biliary dilatation.
3. Previous cholecystectomy.
4. Severe diverticulosis throughout the descending and sigmoid colon.
5. Fusiform infrarenal abdominal aortic aneurysm (2.3 cm AP dimension).
6. Multiple small nonobstructing left intrarenal calculi.
7. Mildly enlarged prostate gland.
8. Severe discogenic degenerative disease at L4/L5.
Prior GI Procedures:
EGD: 1 to 2 years back at outside facility. No records available
Colonoscopy: 08/07/23
Findings:
The perianal and digital rectal examinations were normal.
A 5 mm polyp was found in the transverse colon. The polyp was sessile.
The polyp was removed with a cold snare. Resection and retrieval were
complete. Estimated blood loss was minimal.
A 5 mm polyp was found in the descending colon. The polyp was sessile.
The polyp was removed with a cold snare. Resection and retrieval were
complete. Estimated blood loss was minimal.
Multiple large-mouthed and small-mouthed diverticula were found in the
sigmoid colon and descending colon.
Internal hemorrhoids were found during retroflexion. The hemorrhoids
were small.
The exam was otherwise without abnormality.
Impression: - One 5 mm polyp in the transverse colon, removed with
a cold snare. Resected and retrieved.
- One 5 mm polyp in the descending colon, removed with
a cold snare. Resected and retrieved.
- Diverticulosis in the sigmoid colon and in the
descending colon.
- Internal hemorrhoids.
- The examination was otherwise normal.
Assessment / Plan
-
Impression:63 yo male with intermittent upper abdominal pain with nausea and elevated LFTs. He had second episode of abdominal pain and nausea after his gallbladder was removed on 10/27/23. He was followed up at OP setting during the first episode
and his elevated LFTs resolved. He was told he might had a bile duct stone and it passed. He had another episode starting from Friday and presented to ER . His Abd CT showed: obstructing calculus in the distal common bile duct and additionally he
had dark colored urine and jj-colored stool. He denies dysphagia, lower abdominal pain, fever, chills. He endorses nausea, chronic irregular BM related his ulcerative colitis. His lab results showed elevated LFTs.
Assessment/Plan:
#CBD stone
-Recent cholecystectomy on 10/27/23
-Abd CT 01/21/24 :obstructing calculus in the distal common bile duct located at the ampulla
-AST 279, ALT 425, TB 3.1, total protein 6, albumin 3.6
-ERCP is planned with Dr Gannon today or tomorrow. Primary team will be informed
-
-
Thank you for consultation and allowing me to participate in the patient's care. Please call the outpatient receptionist GI physician during the after hours with any questions or concerns.
--- NOTE | 2024-01-22 10:08 | CM ---
Pt seen bedside. Pt lives w/ spouse in a [place]- 1 step to enter
Prev. independent w/ walker. Pt has shower rails as additional support. No other DME identified
Pt denies SNF, however, did participate in OP rehab in the past @ [facility]
Denies VN/PT in the past
Address, point of contact and insurance verified
PCP: Dr. Cecil Saez
Pharmacy: [facility]
Per pt, his will transport at d/c
Plan: Home; no needs anticipated
[2024-01-22] MEDS: LEVAQUIN 150 IV (10:36)
[2024-01-22] MEDS: BENADRYL 12.5 MG IV (10:39)
[2024-01-22] MEDS: DILAUDID 0.5 MG IV (10:41)
[2024-01-22] MEDS: NON-FORMULARY ITEM PO ×2 (13:08→16:34)
[2024-01-22 14:33] LABS: Urine Albumin Trace (Neg - Trace); Urine Bilirubin 2+ (Negative); Urine Character Clear (Clear); Urine Color Amber; Urine Glucose Negative (Negative); Urine Ketone 1+ (Negative); Urine Leukocyte Trace (Negative); Urine Nitrite Positive (Negative); Urine Occult Blood Negative (Negative); Urine Specific Gravity 1.015 (<1.030); Urine Urobilinogen 3+ (Neg - 1+); Urine pH 6.5 (5.0-9.0)
[2024-01-22 14:44] LABS: Urine Squamous Cell 0-2 /LPF (Few)
[2024-01-22 14:45] LABS: Urine Bacteria Few (Negative); Urine Mucus Few; Urine White Cell 0-2 /HPF (0-5)
[2024-01-22 15:56] VITALS: BP 115/65
[2024-01-22 22:09] LABS: Glucose - Point of Care 111 mg/dl (70-99)
[2024-01-22 23:39] VITALS: BP 124/71
[2024-01-23] VITALS (11 sets, daily range): BP systolic 131–159; BP diastolic 75–99
[2024-01-23] MEDS: FLAGYL 500 MG 100 IV ×3 (00:20→16:09)
[2024-01-23] MEDS: D5LR 1000 IV ×2 (00:20→16:07)
[2024-01-23] MEDS: DILAUDID 0.5 MG IV ×2 (00:21→16:15)
[2024-01-23] MEDS: TORADOL 10 MG IV (06:31)
[2024-01-23 08:08] LABS: % Basophils 0.6 % (0-2); % Eosinophils 2.3 % (0-6); % Immature Granulocytes 0.2 % (0-0.5); % Lymphocytes 28.4 % (20.5-51.1); % Monocytes 16.4 % (1.7-9.3); % Neutrophils 52.1 % (42.2-75.2); Absolute Eosinophils 0.1 10^3/uL (0-0.7); Absolute Lymphocytes 1.4 10^3/uL (1.2-3.4); Absolute Monocytes 0.8 10^3/uL (0.1-0.6); Absolute Neutrophils 2.5 10^3/uL (1.4-6.5); Hematocrit 39.7 % (39.0-52.0); Hemoglobin 14.1 g/dL (13.0-18.0); Mean Corp Hgb Conc. 35.5 g/dL (33.0-37.0); Mean Corpuscular Hgb 33.7 pg (27.0-31.0); Mean Corpuscular Volume 94.7 fL (80.0-94.0); Mean Platelet Volume 10.4 fL (7.4-10.4); Nucleated Red Blood Cells % 0 % (-); Platelet Count 171 10^3/uL (130-400); Red Blood Cell Count 4.19 10^6/uL (4.70-6.10); Red Cell Dist. Width 13.7 % (11.5-14.5); White Blood Cell Count 4.8 10^3/uL (4.8-10.8)
[2024-01-23] MEDS: NON-FORMULARY ITEM 2.5 MG PO ×3 (08:21→22:03)
[2024-01-23] MEDS: ZYRTEC 10 MG PO (08:23)
[2024-01-23] MEDS: NSS (PRESERVATIVE FREE) 10 ML IV (08:23)
[2024-01-23] MEDS: PROTONIX IV 40 MG IV (08:23)
[2024-01-23 08:41] LABS: ALT (SGPT) 469 U/L (0-50); AST (SGOT) 308 U/L (17-59); Albumin 3.6 g/dl (3.5-5.0); Alkaline Phosphatase 177 U/L (38-126); Blood Urea Nitrogen 10 mg/dl (9-20); Calcium 8.8 mg/dl (8.4-10.2); Carbon Dioxide 24 mmol/L (22-30); Chloride 106 mmol/L (98-107); Estimated Creatinine Clearance 87 ml/min; Glucose 95 mg/dl (70-99); Potassium 4.1 mmol/L (3.5-5.1); Sodium 140 mmol/L (135-145); Total Bilirubin 2.8 mg/dl (0.2-1.3); Total Protein 6.1 g/dl (6.3-8.2); eGFR > 60.00
[2024-01-23] MEDS: D5LR IV (08:41)
[2024-01-23] MEDS: LEVAQUIN 150 IV (10:39)
[2024-01-23] MEDS: NICODERM TRANSDERMAL 21 MG TRANSDERM (10:57)
--- NOTE | 2024-01-23 12:05 | W.PN.HOSP.TC ---
Today's Communication/Plan
-
pending ERCP, target to stop Abx early
Nicoderm
Assessment / Plan
Assessment / Plan
63yo M with PMHX of atopic d/o, HLD, migraines, GERD, cholecystectomy in Oct 2023 came with 4 dys of RUQ pain and found obstructive choledocholithiasis.
A/P:
#Obstructive choledocholithiasis
GI for ERCP
IVF
NPO and then advance diet as tolerated
Levaquin (patient did not tolerate PO 2/2 nausea, appropriate to start IV) and Flagyl, however low suspicion for infection, await results of ERCP, targeting to stop if no additional concerns with procedure
Benadryl 2/2 bilirubin-induced itching
follow LFT
Lipase WNL
#Diverticulosis
High fiber diet
#DJD
follow with PCP
#BPH
recommend Urologist
#Non-obstructing nephrolithiasis
Tamsulosin
#Mild abdominal aortic dilation 2.3cm
#Nicotine dependency
US abd in 6 month with PCP
Smoking cessation advised
NicoDerm PRN
#GERD
#HLD
cont home meds when able
DVT ppx lovenox
Full code
I have spent at least 38min reviewing chart, test results, communication with consultants and direct patient care
Anticipated Discharge: Within 24 hours
Subjective/Interval History
-
Date of Service: January 23, 2024
Objective Data
-
Labs:
Laboratory Results
01/23/24
07:41
WBC 4.8
Hgb 14.1
Hct 39.7
Plt Count 171
Sodium 140
Potassium 4.1
Chloride 106
Carbon Dioxide 24
BUN 10
Creatinine 0.9
Glucose 95
Calcium 8.8
Total Bilirubin 2.8 H
AST 308 H
ALT 469 H
Alkaline Phosphatase 177 H
Vital Signs:
Vital Signs
Temp Pulse Resp BP Pulse Ox
97.9 F 55 18 142/81 97
01/23/24 08:16 01/23/24 08:16 01/23/24 08:16 01/23/24 08:16 01/23/24 08:16
I&O
01/22/24 01/23/24 01/24/24
06:59 06:59 06:59
Intake Total 0 / 0 1050 / 1050
Output Total 250 / 250
Balance -250 / -250 1050 / 1050
Review of Systems
-
History Source: Patient
All other systems: Reviewed and negative
Abdomen/GI: Reports Abdominal Pain
Physical Exam
-
General: No Apparent Distress
HEENT: Normocephalic, Atraumatic and Moist Mucous Membranes
Respiratory: Clear to Auscultation
Cardiac: Regular Rhythm
GI: Soft, Nondistended and Tender
Musculoskeletal: No Clubbing, No Cyanosis and No Edema
Neuro: Awake, Alert, Oriented and AO x 3
Psych: Calm
[2024-01-23] MEDS: NON-FORMULARY ITEM PO (12:07)
--- NOTE | 2024-01-23 12:33 | CM ---
Chart reviewed. ERCP pending
No new needs identified for CM
Poss d/c tomorrow per hospitalist note
Plan: Home; no needs
--- NOTE | 2024-01-23 19:26 | PTCARENOTE ---
Patient admitted to room 404-01. Vital signs stable. Oriented to room and use of call connolly and TV and bed controls. Patient verbalizes understanding of teaching and denies questions at this time.
[2024-01-24] MEDS: FLAGYL 500 MG 100 IV ×2 (00:24→09:50)
[2024-01-24] MEDS: D5LR 1000 IV ×2 (00:25→10:12)
[2024-01-24 03:25] VITALS: BP 131/73
[2024-01-24 07:09] LABS: ALT (SGPT) 590 U/L (0-50); AST (SGOT) 419 U/L (17-59); Albumin 3.4 g/dl (3.5-5.0); Alkaline Phosphatase 173 U/L (38-126); Direct Bilirubin 0.9 mg/dl (0.0-0.4); Total Bilirubin 1.6 mg/dl (0.2-1.3); Total Protein 5.9 g/dl (6.3-8.2)
[2024-01-24 07:50] VITALS: BP 157/92
--- NOTE | 2024-01-24 09:20 | W.PN.GI.CBS2 ---
Today's Communication / Plan
-
low fat diet, ok for d/c, labs 1 wk and follow up on 02/22
Assessment / Plan
-
Impression:63 yo male with intermittent upper abdominal pain with nausea and elevated LFTs. He had second episode of abdominal pain and nausea after his gallbladder was removed on 10/27/23. He was followed up at OP setting during the first episode
and his elevated LFTs resolved. He was told he might had a bile duct stone and it passed. He had another episode starting from Friday and presented to ER . His Abd CT showed: obstructing calculus in the distal common bile duct and additionally he
had dark colored urine and jj-colored stool. He denies dysphagia, lower abdominal pain, fever, chills. He endorses nausea, chronic irregular BM related his ulcerative colitis. His lab results showed elevated LFTs.
Assessment/Plan:
#CBD stone
-Recent cholecystectomy on 10/27/23
-Abd CT 01/21/24 :obstructing calculus in the distal common bile duct located at the ampulla
-AST 279, ALT 425, TB 3.1, total protein 6, albumin 3.6
-ERCP 01/23/[address] Viera status post sphincterotomy and balloon extraction of choledocholithiasis
--- No leukocytosis, normal CBC, total bilirubin dropped from 2.8-1.6. Continues hepatocellular injury and elevated alkaline phosphatase, but should improve
-- low fat, ok for discharge with repeat LFTs in 1 wk
-- aware of f/u with Dr. Montana on 02/22 and sent Nan a message as well.
Subjective
Subjective
Date of Service: January 24, 2024
Objective
Data Reviewed
Laboratory Data:
Laboratory Results
01/23/24 07:41
01/23/24 07:41
Laboratory Results
Magnesium 1.8 mg/dl (1.6-2.3) 01/22/24 07:44
Total Bilirubin 1.6 mg/dl (0.2-1.3) H D 01/24/24 05:59
AST 419 U/L (17-59) H 01/24/24 05:59
ALT 590 U/L (0-50) H* 01/24/24 05:59
Alkaline Phosphatase 173 U/L (38-126) H 01/24/24 05:59
Lipase 103 U/L (23-300) 01/21/24 15:22
Vital Signs and I&O:
Vital Signs
Temp Pulse Resp BP Pulse Ox
98.4 F 75 16 157/92 98
01/24/24 07:50 01/24/24 07:50 01/24/24 07:50 01/24/24 07:50 01/24/24 07:50
I&O
01/23/24 01/24/24 01/25/24
06:59 06:59 06:59
Intake Total 1050 / 1050 1240 / 1240
Output Total 300 / 300
Balance 1050 / 1050 940 / 940
[2024-01-24] MEDS: LEVAQUIN 150 IV (09:53)
[2024-01-24] MEDS: NICODERM TRANSDERMAL 21 MG TRANSDERM (10:10)
[2024-01-24] MEDS: NSS (PRESERVATIVE FREE) 10 ML IV (10:11)
[2024-01-24] MEDS: ZYRTEC 10 MG PO (10:11)
[2024-01-24] MEDS: PROTONIX IV 40 MG IV (10:11)
[2024-01-24] MEDS: NON-FORMULARY ITEM 2.5 MG PO (10:12)
--- NOTE | 2024-01-24 11:10 | W.PN.HOSP.TC ---
Today's Communication/Plan
-
dc
Assessment / Plan
Assessment / Plan
63yo M with PMHX of atopic d/o, HLD, migraines, GERD, cholecystectomy in Oct 2023 came with 4 dys of RUQ pain and found obstructive choledocholithiasis.
A/P:
#Obstructive choledocholithiasis
GI did Choledocholithiasis was found. Complete removal was accomplished by biliary sphincterotomy and balloon extraction on 01/23/24. Recommendation to repeat LFT and follow as outpatient - GI provided referral for labs
IVF
NPO and then advance diet as tolerated
Abx can be stopped with no evidence of infection
Benadryl 2/2 bilirubin-induced itching
follow LFT
Lipase WNL
#Diverticulosis
High fiber diet
#DJD
follow with PCP
#BPH
recommend Urologist
#Non-obstructing nephrolithiasis
Tamsulosin
#Mild abdominal aortic dilation 2.3cm
#Nicotine dependency
US abd in 6 month with PCP
Smoking cessation advised
NicoDerm PRN
#GERD
#HLD
cont home meds when able
DVT ppx lovenox
Full code
I have spent at least 38min reviewing chart, test results, communication with consultants and direct patient care
Anticipated Discharge: Today
Subjective/Interval History
-
Date of Service: January 24, 2024
Objective Data
-
Labs:
Laboratory Results
01/24/24
05:59
Total Bilirubin 1.6 H D
AST 419 H
ALT 590 H*
Alkaline Phosphatase 173 H
Vital Signs:
Vital Signs
Temp Pulse Resp BP Pulse Ox
98.4 F 75 16 157/92 98
01/24/24 07:50 01/24/24 07:50 01/24/24 07:50 01/24/24 07:50 01/24/24 07:50
I&O
01/23/24 01/24/24 01/25/24
06:59 06:59 06:59
Intake Total 1050 / 1050 1240 / 1240
Output Total 300 / 300
Balance 1050 / 1050 940 / 940
Review of Systems
-
History Source: Patient
All other systems: Reviewed and negative
Physical Exam
-
General: No Apparent Distress
HEENT: Normocephalic, Atraumatic and Moist Mucous Membranes
Cardiac: Regular Rhythm
GI: Soft, Nontender and Nondistended
Genito-urinary: No Costovertebral Tender
Musculoskeletal: No Clubbing, No Cyanosis and No Edema
Neuro: Awake, Alert, Oriented and AO x 3
Psych: Calm
--- NOTE | 2024-01-24 11:20 | W.DCSUMMARY ---
Discharge Summary
Discharge Data
Date of Admission: 01/21/24
Date of Discharge: 01/24/24
-
Pending Results: No
Hospital Course
63yo M with PMHX of atopic d/o, HLD, migraines, GERD, cholecystectomy in Oct 2023 came with 4 dys of RUQ pain and found obstructive choledocholithiasis. GI did Choledocholithiasis was found. Complete removal was accomplished by biliary
sphincterotomy and balloon extraction on 01/23/24. Recommendation to repeat LFT and follow as outpatient - GI provided referral for labs. No signs of infection with no elevated WBC, fever or findings during ERCP that would be concerning - Abx
stopped. Medically stable for d/c
I have spent at least 37min discharging the patient
Patient was managed for:
#Obstructive choledocholithiasis
#Diverticulosis
#BPH
#Non-obstructing nephrolithiasis
#Nicotine dependency
#GERD
#HLD
#Severe diverticulosis without diverticulitis
#AAA 2.3cm
#Non-obstructing nephrolithiasis
#DJD
Discharge Plan
-
Patient Disposition: Home (Routine Discharge)
Discharge Diagnosis/Procedures: Choledocholithiasis
Diet: Low Residue
Activity: As tolerated
Driving Restrictions: As prior to admission
Blood Work: Liver function test with [facility] next week
Referrals:
Cecil Saez DO [Family Provider] - in less than 1 week (to schedule abdominal aorta US for aneurism monitoring)
Carlos June MD [Active] - in three to four weeks
Savita Bangura DO [Active] - in less than 1 week (for LFT)
Prescriptions:
New
tamsulosin 0.4 mg capsule
0.4 mg PO DAILY Qty: 30 0RF
Continued
multivitamin Tablet
1 tab PO DAILY
cyclobenzaprine 10 mg Tablet
5 mg PO DAILYPRN PRN (Reason: back pain)
cetirizine [Zyrtec] 10 mg Tablet
10 mg PO DAILY
sumatriptan succinate [Imitrex] 100 mg Tablet
100 mg PO DAILYPRN PRN (Reason: migraine)
simvastatin [Zocor] 40 mg Tablet
40 mg PO QPM
lorazepam [Ativan] 0.5 mg Tablet
0.5 mg PO DAILYPRN PRN (Reason: anxiety)
methscopolamine 2.5 mg Tablet
2.5 mg PO ACHS
Pepto-Bismol 262 mg Tablet
524 mg PO DAILYPRN PRN (Reason: indigestion)
simethicone 125 mg Tablet
125 mg PO BIDPRN PRN (Reason: gas)
fluticasone propionate [Flonase Allergy Relief] 50 mcg/actuation [place],Suspension
1 spray INTRANASAL BID
omega 2-vgi-ame-fish oil [Fish Oil] 1,000 mg (120 mg-180 mg) Capsule
1 cap PO HS
pantoprazole 20 mg tablet,delayed release (DR/EC)
20 mg PO BID
tramadol 50 mg tablet
25 mg PO Q6HPRN PRN (Reason: severe pain/breakthrough pain) Qty: 8 0RF
calcium polycarbophil [FiberCon] 625 mg Tablet
625 mg PO BID
Align 4 mg Capsule
4 mg PO DAILY
Gaviscon 80-14.2 mg Tablet,Chewable
2 tab PO DAILYPRN PRN (Reason: indigestion)
Discharge Orders:
Discharge Patient (As Directed); Ordered 01/24/24
Ordered By: Musa Garland
Discharge Date and Time
Print Language: TURKMEN
--- NOTE | 2024-01-24 11:39 | CM ---
Patient seen bedside with friends visiting, discussed plan for discharge. Patient denies needs from CM at this time. CM will continue to follow for all discharge planning needs.
Plan; home with , no needs.
[2024-01-24 13:36] VITALS: BP 150/87
== END 2024-01-24 14:37 | disposition home or self-care (01) | DRG 446 ==
LOC: 4 EAST ACU 19:48
PROVIDERS: Emergency Medicine; Internal Medicine Gastroenterology; ADMITTING PHYSICIAN Internal Medicine; ATTENDING PHYSICIAN Internal Medicine; CONSULT PHYSICIAN Internal Medicine; EMERGENCY PHYSICIAN Emergency Medicine; FAMILY PHYSICIAN Family Medicine
PROC: 0F9C8ZZ Drainage of Ampulla of Vater, Via Natural or Artificial Opening Endoscopic (ICD-10-PCS; 2024-01-23)
PROC: 0FC98ZZ Extirpation of Matter from Common Bile Duct, Via Natural or Artificial Opening Endoscopic (ICD-10-PCS; 2024-01-23)
DX: K80.51 Calculus of bile duct without cholangitis or cholecystitis with obstruction (principal); N40.0 Benign prostatic hyperplasia without lower urinary tract symptoms; N20.0 Calculus of kidney; F17.200 Nicotine dependence, unspecified, uncomplicated; K21.9 Gastro-esophageal reflux disease without esophagitis; K57.30 Diverticulosis of large intestine without perforation or abscess without bleeding; E78.00 Pure hypercholesterolemia, unspecified; Z90.49 Acquired absence of other specified parts of digestive tract
CPT/HCPCS: 74177; 74330; 76000; 80053; 80076; 81003; 81015; 82248; 82962; 83690; 83735; 85025; 85027; 87086; 93005; 96360; 99285; C1769; Q9967